=== PATIENT | female | born 1965 | race Caucasian/White ===

== ENCOUNTER → 2016-04-29 | Outpatient (REF) | payer BC ==
[~2016-04-29] MED LIST: CIPR500T89 PO; LISI10TA4 PO; OXYC1TAB23 PO
== END ==
LOC: M SFHCWAGY 14:06
PROVIDERS: ATTEND Nurse Practitioner Women's Health
DX: Z12.4 Encounter for screening for malignant neoplasm of cervix (principal)

== ENCOUNTER → 2016-04-29 | Outpatient (CLI) | payer BC ==
--- NOTE | 2016-04-29 14:52 | REPMRS ---
Patient History The patient states she had a clinical breast exam in 04/2016. No known family history of cancer. Taking hormonal contraceptives for 9 years. Digital Woman Screen Mammo: April 29, 2016 - Exam #: [id number] Bilateral CC and MLO view(s) were taken. Technologist: Melanie Ortiz, Technologist Prior study comparison: May 01, 2015, digital woman screen mammo performed at [facility]. April 29, 2014, digital woman screen mammo performed at [facility]. June 04, 2013, digital woman screen mammo performed at [facility]. FINDINGS: The breast tissue is heterogeneously dense. This may lower the sensitivity of mammography. There is a moderate amount of heterogeneously dense fibroglandular tissue which is fairly symmetric. There is no interval development of dominant mass, architectural distortion, or clustered microcalcification typical of malignancy. There has been no change in the appearance of the mammogram from the prior studies. ASSESSMENT: BI-RADS/ACR category 1 mammogram. Negative. Recommendation Routine screening mammogram of both breasts in 1 year (for women over age 40). This mammogram was interpreted with the aid of an FDA-approved computer-aided dectection system. Electronically Signed By: Spencer Neil MD 04/29/16 [id number]
== END ==
LOC: M WHC 13:56
PROVIDERS: ATTEND Nurse Practitioner Women's Health
DX: Z12.31 Encounter for screening mammogram for malignant neoplasm of breast (principal)

== ENCOUNTER → 2017-01-06 | Outpatient (REF) | payer BC ==
[~2017-01-06] MED LIST changes: +CIPR-249 PO; -CIPR500T89 PO
== END ==
LOC: M LAB REF 14:32
PROVIDERS: ATTEND Physician Assistant
DX: D22.62 Melanocytic nevi of left upper limb, including shoulder (principal)

== ENCOUNTER → 2017-06-09 | Outpatient (CLI) | payer BC | LOC: M WHC 08:18 | DX: Z12.31 Encounter for screening mammogram for malignant neoplasm of breast (principal) ==

== ENCOUNTER → 2017-06-09 | Outpatient (REF) | payer BC | LOC: M SFHCWAGY 08:20 | DX: Z12.4 Encounter for screening for malignant neoplasm of cervix (principal) | CPT/HCPCS: G0123 ==

== ENCOUNTER → 2018-08-03 | Outpatient (CLI) | payer BC ==
--- NOTE | 2018-08-03 17:11 | REPMRS ---
Patient History The patient states she had a clinical breast exam in 07/2018. Family history of breast cancer at age 50 or over in sister. Taking hormonal contraceptives for 11 years. Digital Woman Screen Mammo: August 03, 2018 - Exam #: [id number] Bilateral CC and MLO view(s) were taken. Technologist: Keily Fisher, Technologist Prior study comparison: June 09, 2017, digital woman screen mammo performed at [facility]. April 29, 2016, digital woman screen mammo performed at [facility]. May 01, 2015, digital woman screen mammo performed at [facility]. FINDINGS: The breast tissue is heterogeneously dense. This may lower the sensitivity of mammography. There is a moderate amount of heterogeneously dense fibroglandular tissue which is fairly symmetric. There is no interval development of dominant mass, architectural distortion, or clustered microcalcification typical of malignancy. There has been no change in the appearance of the mammogram from the prior studies. 3-D tomosynthesis shows no additional findings. Assessment: BI-RADS/ACR category 1 mammogram. Negative Mammogram. Recommendation Breast MRI of both breasts in 6 months. Routine screening mammogram of both breasts in 1 year (for women over age 40). This patient's Lifetime Breast Cancer RIsk is estimated at 20.9 %. Annual screening Breast MRI scanniing is recommended for patient's whose lifetime risk assessment is over 20%. This mammogram was interpreted with the aid of an FDA-approved computer-aided dectection system. Electronically Signed By: Spencer Neil MD 08/03/18 [id number]
== END ==
LOC: M WHC 14:29
PROVIDERS: ATTEND Nurse Practitioner Women's Health
DX: Z12.31 Encounter for screening mammogram for malignant neoplasm of breast (principal); Z80.3 Family history of malignant neoplasm of breast; Z92.0 Personal history of contraception

== ENCOUNTER → 2019-09-23 | Outpatient (CLI) | payer BC ==
--- NOTE | 2019-09-23 10:21 | REPMRS ---
Patient History The patient states she had a clinical breast exam in September 2019. Family history of breast cancer at age 50 or over in sister. Took hormonal contraceptives for 11 years. 3D TOMOSYNTHESIS WAS PERFORMED. AZUL Arguello Digital Woman Screen Mammo: September 23, 2019 - Exam #: [id number] Bilateral CC and MLO view(s) were taken. Technologist: Loreta Hines, Technologist Prior study comparison: August 03, 2018, bilateral digital woman screen mammo performed at [facility]. June 09, 2017, digital woman screen mammo performed at [facility]. FINDINGS: The breast tissue is heterogeneously dense. This may lower the sensitivity of mammography. There has been no change in the appearance of the mammogram from the prior studies. There is a moderate amount of residual fibroglandular tissue which is fairly symmetric. There is no interval development of dominant mass, areas of architectural distortion, or clustered microcalcification typical of malignancy. Assessment: BI-RADS/ACR category 1 mammogram. Negative Mammogram. Recommendation Routine screening mammogram in 1 year (for women over age 40). This mammogram was interpreted with the aid of an FDA-approved computer-aided dectection system. THE LIFETIME RISK OF BREAST CANCER IS 20.4%, THEREFORE SUPPLEMENTAL SCREENING MRI OF THE BREASTS IS RECOMMENDED IN 6 MONTHS. Electronically Signed By: Ryley Antony MD 09/23/19 0000
== END ==
LOC: M WHC 09:02
PROVIDERS: ATTEND Nurse Practitioner Women's Health
DX: Z12.31 Encounter for screening mammogram for malignant neoplasm of breast (principal)

== ENCOUNTER → 2019-09-23 | Outpatient (REF) | payer BC | LOC: M SFHCWAGY 11:40 | PROVIDERS: ATTEND Nurse Practitioner Women's Health | DX: Z12.4 Encounter for screening for malignant neoplasm of cervix (principal) ==

== ENCOUNTER → 2020-09-22 | Outpatient (CLI) | payer BC ==
[~2020-09-22] MED LIST changes: +LISI10TA22 PO; -LISI10TA4 PO
--- NOTE | 2020-09-22 12:29 | REP ---
INDICATION: STACEY SCR MAMMO. COMPARISON: Multiple TECHNIQUE: Digital screening mammography was carried out bilaterally in the CC and MLO projections and compared to the prior exams. Both 2D and 3D modalities were utilized. By history, the patient has no complaints of a palpable breast abnormality or other significant breast complaints.. FINDINGS: The breasts are unchanged in size and shape. Once again, scattered dense heterogenous fibroglandular elements are seen bilaterally. In the upper inner quadrant of the right breast there is a potential fay asymmetric density. No other suspicious features are seen in either breast. There is no skin thickening or nipple retraction. There are no suspicious calcifications. The Volpara volumetric breast density pattern is b. IMPRESSION: BIRADS/ACR category 0 mammogram. Suspected fay density right breast upper inner quadrant for which diagnostic digital magnified spot compression views recommended in the CC and MLO projections along with ultrasonography. This patient's Tyrer-Cuzick lifetime breast cancer risk assessment score is 19.9%. This mammogram was interpreted with the aid of an FDA-approved computer-aided detection system. The patient states she had a clinical breast exam in September 2020. The patient letter being requested is M0. RECOMMENDATION: As above <Electronically signed by Goyo Solis > 09/22/20 [id number]
== END ==
LOC: M WHC 10:52
PROVIDERS: ATTEND Nurse Practitioner Women's Health
DX: R92.2 Inconclusive mammogram (principal); N63.12 Unspecified lump in the right breast, upper inner quadrant

== ENCOUNTER → 2020-10-16 | Outpatient (CLI) | payer BC ==
--- NOTE | 2020-10-16 17:34 | REP ---
INDICATION: ADDITIONAL VIEWS RT BREAST; RIGHT BREAST ADD VIEWS; ADDITONAL VIEWS RT BREAST. COMPARISON: Comparison mammography September 22, 2020, September 23, 2019, August 03, 2018. TECHNIQUE: Magnified focal spot-compression CC and MLO views are obtained. A true mediolateral view is obtained with tomography. Targeted right breast sonography is carried out. This mammogram was interpreted with the aid of an FDA-approved computer-aided detection system. FINDINGS: Diagnostic mammography of the right breast confirms the presence of a spiculated mass in the right breast in the 12-1 o'clock position middle 3rd. This measuresr 2 cm in greatest diameter. Remaining breast parenchyma is unremarkable on the right. This is considered suspicious mammographically. The Volpara volumetric breast density pattern is b. Targeted ultrasound: Targeted right breast sonography is performed. At 12 o'clock in the right breast, a 1.5 x 1.5 x 1.4 cm irregular hypoechoic mass is seen corresponding the mammographic findings. This has a relatively high K PA number, 65.0, on shear wave elastography. It is considered suspicious sonographically. IMPRESSION: BIRADS/ACR category 5 highly suspicious right breast mammographic and sonographic findings. 2 cm mass at 12 o'clock. This patient's Tyrer-Cuzick lifetime breast cancer risk assessment score is 19.9%. RECOMMENDATION: Ultrasound-guided needle biopsy of the right breast mass with marker clip placement and post clip placement mammography.. The patient letter being requested is M4. <Electronically signed by Spencer Neil > 10/16/20 [id number]
== END ==
LOC: M WHC 09:12
PROVIDERS: ATTEND Nurse Practitioner Women's Health
DX: R92.2 Inconclusive mammogram (principal); N63.11 Unspecified lump in the right breast, upper outer quadrant; Z97.8 Presence of other specified devices
CPT/HCPCS: 76642; 77065; G0279

== ENCOUNTER → 2020-10-16 | Outpatient (CLI) | payer BC ==
[~2020-10-16] MED LIST changes: +ACET650T61 PO; +ATOR1TAB21 PO; +FISH1000 PO; +FURO20TA2 PO; +HYDR12.55 PO; +LIDO1CRE42 TOP; +LISI5TAB11 PO; +MAGICMW SSP; +METO1TAB32 PO; +NEUR300C PO; +ONDA-84 PO; +PERC5TAB12 PO; +PROC10TA5 PO; +ULTR50TA8 PO
[2020-10-16 13:16] LABS: BASO # 0.1 10^3/uL (0.0-0.2); BASO % 0.6 % (0.0-1.0); EOS # 0.3 10^3/uL (0.0-0.5); EOS % 3.2 % (0.0-3.0); HEMATOCRIT 42.9 % (36.0-47.0); HEMOGLOBIN 14.2 g/dl (12.0-15.5); LYMPH # 2.2 10^3/uL (1.5-5.0); LYMPH % 27.1 % (24.0-44.0); MEAN CORPUSCULAR HEMOGLOBIN 30.7 pg (27.0-33.0); MEAN CORPUSCULAR HGB CONC 33.1 g/dl (32.0-36.5); MEAN CORPUSCULAR VOLUME 92.7 fl (80.0-96.0); MONO # 0.8 10^3/uL (0.0-0.8); MONO % 9.1 % (2.0-8.0); NEUTROPHILS # 4.9 10^3/uL (1.5-8.5); NEUTROPHILS % 59.8 % (36.0-66.0); PLATELET COUNT, AUTOMATED 299 10^3/uL (150-450); RED BLOOD COUNT 4.63 10^6/uL (4.00-5.40); WHITE BLOOD COUNT 8.2 10^3/uL (4.0-10.0)
[2020-10-16 13:47] LABS: ALBUMIN 4.4 GM/DL (3.2-5.2); ALT/SGPT 49 U/L (12-78); BILIRUBIN,TOTAL 0.7 MG/DL (0.2-1.0); BLOOD UREA NITROGEN 15 MG/DL (7-18); CALCIUM LEVEL 10.8 MG/DL (8.5-10.1); CARBON DIOXIDE LEVEL 29 MEQ/L (21-32); CHLORIDE LEVEL 111 MEQ/L (98-107); CHOLESTEROL LEVEL 149 MG/DL (<200); CHOLESTEROL RISK RATIO 2.811 (<5); CREATININE FOR GFR 0.58 MG/DL (0.55-1.30); FREE T4 0.87 NG/DL (0.76-1.46); GLOMERULAR FILTRATION RATE > 60.0 (>51); GLUCOSE, FASTING 90 MG/DL (70-100); HDL CHOLESTEROL 53 MG/DL (>40); LDL CHOLESTEROL 76 MG/DL (<100); NON-HDL-C 96 MG/DL; POTASSIUM SERUM 3.9 MEQ/L (3.5-5.1); SODIUM LEVEL 144 MEQ/L (136-145); THYROID STIMULATING HORMONE 0.807 uIU/ML (0.358-3.740); TOTAL PROTEIN 6.9 GM/DL (6.4-8.2); TRIGLYCERIDES LEVEL 100 MG/DL (<150)
[2020-10-19 10:52] LABS: PTH INTACT 71.7 PG/ML (18.5-88.0)
[2020-10-19 13:00] LABS: LABILE ALKPHOS 76 U/L; STABLE ALKPHOS 69 U/L
[2020-10-19 13:01] LABS: % LABILE ALKALINE PHOSPHATASE 52.4 %
== END ==
LOC: M PLALAB 10:53
PROVIDERS: ATTEND Family Medicine
DX: Z13.29 Encounter for screening for other suspected endocrine disorder (principal); Z13.0 Encounter for screening for diseases of the blood and blood-forming organs and certain disorders involving the immune mechanism; E78.2 Mixed hyperlipidemia; E83.52 Hypercalcemia

== ENCOUNTER → 2020-10-21 | Outpatient (CLI) | payer BC ==
[2020-10-21 16:11] VITALS: BP 158/94
== END ==
LOC: M WHCPRO 15:22
PROVIDERS: ATTEND Surgery
DX: C50.211 Malignant neoplasm of upper-inner quadrant of right female breast (principal)

== ENCOUNTER → 2020-10-28 | Outpatient (CLI) | payer BC ==
[~2020-10-28] MED LIST changes: -ACET650T61 PO; -FURO20TA2 PO; -LIDO1CRE42 TOP; -LISI5TAB11 PO; -MAGICMW SSP; -NEUR300C PO; -ONDA-84 PO; -PERC5TAB12 PO; -PROC10TA5 PO; -ULTR50TA8 PO
[2020-10-28 14:50] VITALS: BP 122/78
--- NOTE | 2020-10-28 22:51 | ROOPDOC ---
[facility] Report Of Operation Report of Operation DATE OF PROCEDURE: 10/28/20 DIAGNOSIS: Right abnormal axillary lymph node PROCEDURE: Ultrasound guided right abnormal axillary lymph node biopsy with clip placement SURGEON: Anish Agarwal BLOOD LOSS: minimal COMPLICATIONS: none Lidocaine 1% LOT [id number] Expiration 04/2024 Sodium Bicarbonate 8.4% LOT [id number] Expiration 04/2021 Hydromark clip LOT [id number] Expiration 06/2023 SHAPE 3 Bx device: TEMNO 18G x 20 cm LOT [id number] Expiration 04/2023 Informed consent was obtained. The most common risk and possible complications including bleeding, hematoma, bruising, infection, injury to surrounding structures were explained to the patient and the patient expressed un derstanding. Patient was placed on the bed in the supine position. Appropriate time out was done stating patients name, date of , and the procedure to be performed. The right axilla was prepped and draped in the usual fashion. The ultrasound was used to confirm the location of enlarged lymph node with cortex measuring 8 mm. Plain Lidocaine 1% and 8.4% sodium bicarbonate 10:1 mix was used to anesthetize the skin, the biopsy site and tissues along the anticipated biopsy tract. Small skin incision was made with blade number 11. Temno 18G cannula with introducer was inserted through the incision and advanced under the ultrasound guidance to position immediately adjacent to the enlarged lymph node with 8 mm cortex. Next, the introducer was removed and Temno 18G biopsy device was places in the cannula. Pre-biopsy imaging, and post-biopsy imaging were captured. Five good core biopsies were taken at various levels of the lesion. Specimen was placed in formaldehyde, labeled with appropriate biopsy site and patients name, and sent to pathology for evaluation. Next, the biopsy device and cannula were withdrawn and a clip introducer was inserted into the position immediately adjacent to the biopsied lymph node. The SHAPE 3 Hydromark clip was deployed under sonographic guidance. Post-clip placement image was captured. Manual pressure over the biopsy cavity and tract was held after the clip introducer was withdrawn. No bleeding was noted upon removal of the pressure. No postbiopsy right breast mammogram was done because the probability of seeing axillary lymph node was very low. Of note, patient had right breast mammogram last week. Postprocedural dressing was placed. Patient tolerated procedure well. Discharge instructions were discussed with the patient and the patient expressed understanding. ANISH AGARWAL DO Oct 28, 2020 22:51
== END ==
LOC: M WHCPRO 09:22
PROVIDERS: ATTEND Surgery
DX: C77.3 Secondary and unspecified malignant neoplasm of axilla and upper limb lymph nodes (principal); C50.911 Malignant neoplasm of unspecified site of right female breast

== ENCOUNTER → 2020-11-05 | Outpatient (CLI) | payer BC ==
[~2020-11-05] MED LIST changes: +PROHANCE 279.3MG/ML 15ML VIAL As Ordered ONE; +PROHANCE 279.3MG/ML 5ML VIAL As Ordered ONE
--- NOTE | 2020-11-05 16:32 | REP ---
INDICATION: INVASIVE DUCTAL CA RT BREAST. COMPARISON: Mammograms 09/22/2020, 10/16/2020. TECHNIQUE: Three [place] MRI imaging was performed with a dedicated breast coil. Axial, coronal, and sagittal T1 and T2 weighted scans were obtained with and without fat saturation in the usual fashion. The study includes dynamically acquired post gadolinium-enhanced imaging with image subtraction. Maximum intensity projection and multi planar reformation imaging is included as well. This study is interpreted with the aid of WiramaD, an FDA approved computer aided detection (CAD) software program, on a dedicated breast MRI workstation. The gadolinium enhancement dose is 16 mL of intravenous ProHance. FINDINGS: There is moderate fibroglandular tissue present bilaterally. An enlarged right axillary lymph node measures approximately 2.3 x 1.7 cm. No dominant cyst is seen in either breast. There is moderate background parenchymal enhancement diffusely bilaterally. The known right breast cancer is visualized in the upper right breast in the form of a suspicious enhancing mass with irregular margins. There is a biopsy clip in the medial margin of the mass. It measures approximately 2 cm in diameter. There is no other suspicious enhancing mass or morphologic abnormality. IMPRESSION: BI-RADS category 6, known right breast cancer. In the upper right breast slightly medially a suspicious enhancing mass with irregular margins has a maximum diameter of approximately 2 cm. There is a biopsy clip in the medial margin of the mass. This is consistent with invasive ductal carcinoma. An enlarged right axillary lymph node is present. I see no other evidence of suspicious enhancing mass or morphologic abnormality. <Electronically signed by Ryley Antony > 11/05/20 [id number]
== END ==
LOC: M RAD 09:34
PROVIDERS: ATTEND Surgery
DX: C50.911 Malignant neoplasm of unspecified site of right female breast (principal)
CPT/HCPCS: A9576; C8908

== ENCOUNTER → 2020-11-18 | Outpatient (CLI) | payer BC ==
[~2020-11-18] MED LIST changes: +LISI-898 PO; -PROHANCE 279.3MG/ML 15ML VIAL As Ordered ONE; -PROHANCE 279.3MG/ML 5ML VIAL As Ordered ONE
--- NOTE | 2020-11-18 09:52 | REP ---
INDICATION: RT ARM PAIN SWELLING ? DVT COMPARISON: None. TECHNIQUE: Real time compression and duplex Doppler evaluation of the Right upper extremity deep venous system is performed. FINDINGS: The Right subclavian, jugular, axillary, brachial, basilic and cephalic veins are fully compressible where accessible with transducer pressure, and demonstrate no intraluminal thrombus and normal venous waveforms. There is no evidence of deep venous thrombosis. IMPRESSION: No evidence of deep venous thrombosis of the Right upper extremity deep vein system. <Electronically signed by Ryley Antony > 11/18/20 0949
== END ==
LOC: M RAD 09:01
PROVIDERS: ATTEND Surgery
DX: M79.601 Pain in right arm (principal)

== ENCOUNTER → 2020-11-30 | Outpatient (CLI) | payer BC ==
[~2020-11-30] MED LIST changes: +ONDA8TAB10 PO; +PROC10TA4 PO
== END ==
LOC: M CARPUL 11:06
PROVIDERS: ATTEND Internal Medicine Medical Oncology
DX: C50.911 Malignant neoplasm of unspecified site of right female breast (principal); Z79.899 Other long term (current) drug therapy

== ENCOUNTER → 2020-12-04 | Outpatient (CLI) | payer BC ==
[~2020-12-04] MED LIST changes: +ACETAMINOPHEN 325 MG TAB As Ordered ONE; +LIDO1CRE42 TOP; +LIDOCAINE 1% MDV 20ML VIAL As Ordered ONE; +MIDAZOLAM INJ 2MG/2ML VIAL (J2250 PER 1MG) As Ordered ONE; +NS 1,000 ML IV SCH; +ceFAZolin 1GM VIAL (J0690 PER 500MG) As Ordered ONE; +ceFAZolin SOD 1 GM in D5W MINI-BAG PLUS 50 ML IV SCH; +ceFAZolin SOD 2 GM in IV 1 EA IV ONE; +diphenhydrAMINE 50MG/ML VIAL (J1200) As Ordered ONE; +fentaNYL 100 MCG/2 ML INJECTION (J3010) As Ordered ONE
--- NOTE | 2020-12-04 11:14 | IRHP ---
[facility] IR Pre-Procedure H & P General Date of Service: Dec 04, 2020 Procedure: Same Day Surgery Interval History and Physical I have seen the patient and reviewed last H & P performed within 30 days. There is no significant interval change. History of Present Illness Chief Complaint The patient is a 55-year-old female admitted with a reason for visit of Rt Sided Breast Ca. PRE-PROCEDURE DIAGNOSIS: Breast cancer HEART: Normal rate. LUNGS: Normal breathing at rest. ASA Classification ASA Classification: II-Mild systemic disease, III-Severe systemic dis. Mallampati Score: II NPO: Yes Problems with prior sedation: No Obstructive Sleep Apnea: No Plan moderate sedation Allergies Coded Allergies: MS - No Known Drug Allergy (Unverified Allergy, Unknown, 06/19/12) Home Medications Scheduled Atorvastatin Calcium (Atorvastatin Calcium), 1 TAB PO DAILY, (Reported) Hydrochlorothiazide (Hydrochlorothiazide), 1 TAB PO DAILY, (Reported) Lisinopril (Lisinopril), 1 TAB PO DAILY, (Reported) Metoprolol Succinate (Metoprolol Succinate), 1 TAB PO DAILY, (Reported) [place]-3 Fatty Acids/Fish Oil (Fish Oil 1,000 mg Capsule), 1 CAP PO DAILY, (Reported) Scheduled PRN Ondansetron HCl (Ondansetron HCl), 8 MG PO Q12H PRN for NAUSEA OR VOMITING Prochlorperazine Maleate (Prochlorperazine Maleate), 10 MG PO Q6H PRN for NAUSEA OR VOMITING LISBET ABDUL MD Dec 04, 2020 11:14
--- NOTE | 2020-12-07 08:38 | IRPON ---
IR Postoperative Note Date Of Procedure: Dec 04, 2020 Time Of Procedure: 16:00 IR Postoperative Note IR Ultrasound and fluoroscopy guided port placement IR Ultrasound of the neck. IR Moderate sedation. Clinical indication: Right-sided breast cancer. Physician: Dr. Rousseau. Procedure: The patient was advised of the benefits, risks, and alternatives of the procedure and informed consent was obtained. A time-out was performed with verification of the patient's name, MRN, site of procedure and type of procedure to be performed. The patient was positioned in the supine position on the angiographic table. The site was prepped and draped in the usual sterile fashion. Moderate sedation was performed by the physician including the presence of an independent trained RN who assisted and monitored the patient's level of consciousness and physiologic status. Following the administration of fentanyl and Versed , the physician spent 45 minutes of continuous face to face time with the patient. Ultrasound of the neck reveals a patent and compressible left internal jugular vein. A supervisor cold rolling radiograph reveals no gross abnormality. The neck and anterior chest wall were anesthetized with lidocaine. The left internal jugular vein was accessed using a microintroducer needle under ultrasound guidance, via a lateral approach. An 018 wire was advanced into the superior vena cava, the needle was removed and a microsheath was placed. An Amplatz wire was then passed into the inferior vena cava. An incision at the internal jugular vein access site and anterior chest wall were made using a scalpel. An incision was made at the anterior chest wall. A small pocket was created using a combination of blunt and sharp dissection. A tunneling device was then used to pass the catheter from the pocket to the neck puncture site. An 8- [employer] Smart power port was then positioned in the pocket. The catheter was then measured and cut. The introducer sheath was exchanged for a peel-away sheath. The catheter was passed through the peel-away sheath into the internal jugular vein and the peel-away sheath was removed. The port tip was positioned at the cavoatrial junction. The port was then accessed with a Lopez needle. The port flushes and aspirates well. The puncture site in the neck was closed. The chest wall incision was then closed with 2-0 Vicryl and 4-0 Monocryl. Glue and Steri- Strips were applied. A sterile dressing was then applied. The patient tolerated the procedure well and was returned to the PRU in stable condition. Estimated blood loss: <5 ml. Complications: None. Conclusion: 1. Successful placement of an 8-[place] [employer] Smart power port via the Left internal jugular vein. The port is ready for immediate use. 2. Patient to follow up in IR clinic in 2 weeks. Thank you for this referral. LISBET ROUSSEAU MD Dec 07, 2020 08:37
== END ==
LOC: M IRPRO 10:51
PROVIDERS: ATTEND Internal Medicine Medical Oncology
DX: C50.911 Malignant neoplasm of unspecified site of right female breast (principal); Z79.899 Other long term (current) drug therapy
CPT/HCPCS: 36561; 99152; 99153; C1769; C1788; C1894; J0690; J1200; J1642; J1644; J2250; J3010

== ENCOUNTER → 2020-12-22 | Outpatient (POV) | payer BC ==
[~2020-12-22] VITALS: Ht 160 cm; Wt 81.8 kg
[~2020-12-22] MED LIST changes: -ACETAMINOPHEN 325 MG TAB As Ordered ONE; -LIDOCAINE 1% MDV 20ML VIAL As Ordered ONE; -MIDAZOLAM INJ 2MG/2ML VIAL (J2250 PER 1MG) As Ordered ONE; -NS 1,000 ML IV SCH; -ceFAZolin 1GM VIAL (J0690 PER 500MG) As Ordered ONE; -ceFAZolin SOD 1 GM in D5W MINI-BAG PLUS 50 ML IV SCH; -ceFAZolin SOD 2 GM in IV 1 EA IV ONE; -diphenhydrAMINE 50MG/ML VIAL (J1200) As Ordered ONE; -fentaNYL 100 MCG/2 ML INJECTION (J3010) As Ordered ONE
[2020-12-22 08:45] VITALS: BP 133/87
--- NOTE | 2020-12-24 13:52 | IRPN ---
[facility] IR Progress Note IR Progress Note DATE: Dec 22, 2020 FOLLOW-UP: Patient is status post port placement. Patient states doing well, no fevers or chills or pain at site. ON EXAMINATION: Port site appears to be healing well. Glue and Steri-Strips are still on. No redness, discharge or fluctuance. IMPRESSION: Doing well status post port placement. No further follow-up scheduled unless initiated by patient and/or referring provider. Thank you for this referral Allergies Coded Allergies: No Known Allergies (Verified Allergy, Unknown, 12/07/20) VS,Fishbone, I+O VS, Fishbone, I+O Vital Signs Date Time Temp Pulse Resp B/P (MAP) Pulse Ox O2 Delivery O2 Flow Rate FiO2 12/22/20 08:45 97.8 74 20 133/87 (102) 98 Room Air LISBET ABDUL MD Dec 24, 2020 13:52
== END ==
LOC: M IRPOV 08:32
PROVIDERS: ATTEND Radiology Diagnostic Radiology
DX: Z45.2 Encounter for adjustment and management of vascular access device (principal)

== ENCOUNTER → 2021-01-11 | Outpatient (CLI) | payer BC ==
[2021-01-11 15:32] LABS: CALCIUM LEVEL 10.4 MG/DL (8.5-10.1); PHOSPHORUS LEVEL 3.1 MG/DL (2.5-4.9)
[2021-01-11 15:42] LABS: TOTAL 25(OH) VITAMIN D 34.2 NG/ML (30.0-100.0)
== END ==
LOC: M PLALAB 11:01
PROVIDERS: ATTEND Internal Medicine Endocrinology, Diabetes & Metabolism
DX: E83.52 Hypercalcemia (principal)

== ENCOUNTER → 2021-01-15 | Outpatient (REF) | payer BC | LOC: M LAB REF 10:10 | PROVIDERS: ATTEND Internal Medicine Endocrinology, Diabetes & Metabolism | DX: E83.52 Hypercalcemia (principal) ==

== ENCOUNTER → 2021-01-25 | Outpatient (REF) | payer BC ==
[2021-01-25 13:52] LABS: CALCIUM, 24 HOUR URINE 58.5 MG/24HR (42-353); CALCIUM, URINE 11.7 MG/DL
== END ==
LOC: M LAB REF 10:08
PROVIDERS: ATTEND Internal Medicine Endocrinology, Diabetes & Metabolism
DX: E83.52 Hypercalcemia (principal)

== ENCOUNTER → 2021-01-26 | Outpatient (CLI) | payer BC ==
--- NOTE | 2021-01-26 13:57 | REP ---
INDICATION: RT BREAST CA. COMPARISON: Ultrasound 10/16/2020. TECHNIQUE: Real-time sonographic evaluation of right breast performed. FINDINGS: The previously identified hypoechoic irregular mass at 12 o'clock is again visualized. It measures 11.5 x 9.8 x 8.8 mm, previously 15.2 x 15.1 x 13.5 mm. Current volume 0.519 cc, prior volume 1.62 cc. This is a 68% decrease. HydroMARK clip is noted at the medial margin of the mass. IMPRESSION: BIRADS/ACR category 6, known right breast cancer. The mass at 12 o'clock has decreased in size as discussed in detail above. RECOMMENDATION: None. <Electronically signed by Ryley Antony > 01/26/21 [id number]
== END ==
LOC: M RAD 13:04
PROVIDERS: ATTEND Internal Medicine Medical Oncology
DX: C50.911 Malignant neoplasm of unspecified site of right female breast (principal)

== ENCOUNTER → 2021-03-22 | Outpatient (CLI) | payer BC ==
[~2021-03-22] MED LIST changes: +MAGICMW SSP; +PERC5TAB12 PO
[2021-03-22 15:55] LABS: BLOOD UREA NITROGEN 9 MG/DL (7-18); CALCIUM LEVEL 10.5 MG/DL (8.5-10.1); CARBON DIOXIDE LEVEL 31 MEQ/L (21-32); CHLORIDE LEVEL 102 MEQ/L (98-107); CREATININE FOR GFR 0.52 MG/DL (0.55-1.30); GLOMERULAR FILTRATION RATE > 60.0 (>51); GLUCOSE, FASTING 95 MG/DL (70-100); POTASSIUM SERUM 3.5 MEQ/L (3.5-5.1); SODIUM LEVEL 137 MEQ/L (136-145)
== END ==
LOC: M PLALAB 12:46
PROVIDERS: ATTEND Surgery
DX: C50.911 Malignant neoplasm of unspecified site of right female breast (principal)

== ENCOUNTER → 2021-03-31 | Outpatient (CLI) | payer BC ==
[~2021-03-31] MED LIST changes: -LISI-898 PO; +LISI5TAB11 PO; +NEUR300C PO; +ONDA-84 PO; -ONDA8TAB10 PO; -PROC10TA4 PO; +PROC10TA5 PO
== END ==
LOC: M RAD 11:33
PROVIDERS: ATTEND Internal Medicine Medical Oncology
DX: R22.31 Localized swelling, mass and lump, right upper limb (principal)

== ENCOUNTER → 2021-04-02 | Outpatient (CLI) | payer BC | LOC: M ONCR 15:40 | PROVIDERS: ATTEND General Practice | DX: C50.311 Malignant neoplasm of lower-inner quadrant of right female breast (principal); Z92.21 Personal history of antineoplastic chemotherapy; Z79.891 Long term (current) use of opiate analgesic; Z79.899 Other long term (current) drug therapy ==

== ENCOUNTER → 2021-04-07 | Outpatient (CLI) | payer BC | LOC: M RAD 10:30 | PROVIDERS: ATTEND Surgery | DX: C50.311 Malignant neoplasm of lower-inner quadrant of right female breast (principal) ==

== ENCOUNTER → 2021-04-14 | Outpatient (CLI) | payer BC ==
[~2021-04-14] MED LIST changes: +FURO20TA2 PO
[2021-04-14 12:15] VITALS: BP 143/68
== END ==
LOC: M IRPRO 08:55
PROVIDERS: ATTEND Surgery
DX: R92.8 Other abnormal and inconclusive findings on diagnostic imaging of breast (principal)
CPT/HCPCS: 19085; 77065; 88305; 88342; A9576; G0279

== ENCOUNTER → 2021-04-23 | Outpatient (CLI) | payer BC ==
[2021-04-23 15:14] LABS: BASO # 0.1 10^3/uL (0.0-0.2); BASO % 1.4 % (0.0-1.0); EOS # 0.4 10^3/uL (0.0-0.5); EOS % 5.6 % (0.0-3.0); HEMATOCRIT 40.4 % (36.0-47.0); HEMOGLOBIN 12.9 g/dl (12.0-15.5); LYMPH # 2.4 10^3/uL (1.5-5.0); LYMPH % 29.9 % (24.0-44.0); MEAN CORPUSCULAR HEMOGLOBIN 30.9 pg (27.0-33.0); MEAN CORPUSCULAR HGB CONC 31.9 g/dl (32.0-36.5); MEAN CORPUSCULAR VOLUME 96.7 fl (80.0-96.0); MONO # 0.7 10^3/uL (0.0-0.8); MONO % 9.1 % (2.0-8.0); NEUTROPHILS # 4.2 10^3/uL (1.5-8.5); NEUTROPHILS % 53.7 % (36.0-66.0); PLATELET COUNT, AUTOMATED 277 10^3/uL (150-450); RED BLOOD COUNT 4.18 10^6/uL (4.00-5.40); WHITE BLOOD COUNT 7.9 10^3/uL (4.0-10.0)
[2021-04-23 15:43] LABS: ALBUMIN 4.1 GM/DL (3.2-5.2); ALT/SGPT 51 U/L (12-78); BILIRUBIN,TOTAL 0.2 MG/DL (0.2-1.0); BLOOD UREA NITROGEN 13 MG/DL (7-18); CALCIUM LEVEL 10.8 MG/DL (8.5-10.1); CARBON DIOXIDE LEVEL 33 MEQ/L (21-32); CHLORIDE LEVEL 106 MEQ/L (98-107); CREATININE FOR GFR 0.65 MG/DL (0.55-1.30); GLOMERULAR FILTRATION RATE > 60.0 (>51); GLUCOSE, FASTING 97 MG/DL (70-100); SODIUM LEVEL 143 MEQ/L (136-145); TOTAL PROTEIN 6.8 GM/DL (6.4-8.2)
== END ==
LOC: M PLALAB 14:10
PROVIDERS: ATTEND Nurse Practitioner Adult Health
DX: Z01.818 Encounter for other preprocedural examination (principal)

== ENCOUNTER → 2021-05-01 | Outpatient (CLI) | payer BC | LOC: M LABSMTC 09:32 | PROVIDERS: ATTEND Surgery | DX: Z01.812 Encounter for preprocedural laboratory examination (principal); Z20.822 Contact with and (suspected) exposure to COVID-19 ==

== ENCOUNTER 2021-05-06 06:17 | Observation (INO) | payer BC ==
[~2021-05-06] VITALS: Ht 160 cm; Wt 74.8 kg
[~2021-05-06 06:17] MED LIST changes: +LR 1,000 ML IV ONE; +ceFAZolin SOD 2 GM in IV 1 EA IV ONE
[2021-05-06] MEDS ORDERED: HEPARIN SOD (PORCINE) 5000UNITS/ML 1ML VIAL/SYRINGE SQ ONE (07:15)
[2021-05-06] MEDS ORDERED: ISOSULFAN BLUE(LYMPHAZURIN) 1% 50MG/5ML VIAL As Ordered ONE (10:34)
[2021-05-06] MEDS ORDERED: propofoL 200 MG/20 ML VIAL As Ordered ONE ×3 (11:27→15:56)
[2021-05-06] MEDS ORDERED: LIDOCAINE 2% 100MG/5ML SDV (FOR ANES.) As Ordered ONE (11:27)
[2021-05-06] MEDS ORDERED: GENTAMICIN SULF 80MG/2ML VIAL As Ordered ONE (11:28)
[2021-05-06] MEDS ORDERED: dexameTHASONE 4 MG/ML 1ML VIAL (J1100 PER 1MG) As Ordered ONE (11:28)
[2021-05-06] MEDS ORDERED: BUPIVACAINE LIPOSOME/PF 1.3% 20ML VIAL (13.3MG/ML)(EXPAREL) As Ordered ONE (11:28)
[2021-05-06] MEDS ORDERED: SUCCINYLCHOLINE 100 MG/5 ML SYRINGE (J0330) As Ordered ONE (11:29)
[2021-05-06] MEDS ORDERED: ACETAMINOPHEN TAB 650MG DOSE (2X325MG) PO PRN (11:35)
[2021-05-06] MEDS ORDERED: ONDANSETRON 4MG/2ML VIAL IV PRN ×2 (11:35→17:45)
[2021-05-06] MEDS ORDERED: MORPHINE 2 MG/ML 1ML VIAL IV PRN (11:35)
[2021-05-06] MEDS: LR 1,000 ML IV SCH ×2 (11:35→22:05)
[2021-05-06] MEDS ORDERED: ACETAMINOPHEN 1000MG 100ML IV BTL (OFIRMEV) (J0131 PER 10MG) As Ordered ONE (11:42)
[2021-05-06] MEDS ORDERED: MIDAZOLAM INJ 2MG/2ML VIAL (J2250 PER 1MG) As Ordered ONE (11:43)
[2021-05-06] MEDS ORDERED: fentaNYL 250 MCG/5 ML INJECTION As Ordered ONE (11:43)
[2021-05-06] MEDS ORDERED: fentaNYL 100 MCG/2 ML INJECTION As Ordered ONE ×2 (13:32→17:41)
[2021-05-06] MEDS ORDERED: METOCLOPRAMIDE INJ 10MG/2ML VIAL (J2765 PER 1) As Ordered ONE (14:28)
[2021-05-06] MEDS ORDERED: HYDROmorphone HCL 2MG/ML 1ML VIAL As Ordered ONE (15:55)
[2021-05-06] MEDS ORDERED: ceFAZolin 2 GM/D5W 50 ML IV BAG (J0690 PER 500MG) As Ordered ONE (16:02)
[2021-05-06] MEDS ORDERED: LR 1,000 ML IV SCH (17:45)
[2021-05-06] MEDS: fentaNYL 100 MCG/2 ML INJECTION IV PRN ×4 (17:47→18:05)
[2021-05-06] MEDS: oxyCODONE 5MG TAB PO PRN ×2 (17:56→18:27)
[2021-05-06] MEDS: HYDROMORPHONE HCL 0.5 MG/ 0.5 ML SYRINGE (J1170 PER 1) IV PRN ×4 (18:10→18:25)
[2021-05-06 19:00] VITALS: BP 135/83
[2021-05-06 19:50] VITALS: BP 134/84
[2021-05-06] MEDS: GABAPENTIN 300 MG CAP PO SCH (20:32)
[2021-05-06] MEDS: ceFAZolin SOD 2 GM in IV 1 EA IV SCH (20:32)
[2021-05-06] MEDS: HEPARIN SOD (PORCINE) 5000UNITS/ML 1ML VIAL/SYRINGE SQ SCH (20:33)
[2021-05-06] MEDS: traMADol 50 MG TAB PO PRN (20:43)
[2021-05-06 21:19] VITALS: BP 136/84
[2021-05-06 22:42] VITALS: BP 135/88
[2021-05-07] MEDS: ceFAZolin SOD 2 GM in IV 1 EA IV SCH (05:18)
[2021-05-07] MEDS: HEPARIN SOD (PORCINE) 5000UNITS/ML 1ML VIAL/SYRINGE SQ SCH (05:19)
[2021-05-07] MEDS: traMADol 50 MG TAB PO PRN ×2 (05:28→12:52)
[2021-05-07 06:08] LABS: BASO % 0.3 % (0.0-1.0); EOS % 0.2 % (0.0-3.0); HEMATOCRIT 35.6 % (36.0-47.0); HEMOGLOBIN 11.1 g/dl (12.0-15.5); LYMPH # 1.9 10^3/uL (1.5-5.0); LYMPH % 16.9 % (24.0-44.0); MEAN CORPUSCULAR HEMOGLOBIN 29.4 pg (27.0-33.0); MEAN CORPUSCULAR HGB CONC 31.2 g/dl (32.0-36.5); MEAN CORPUSCULAR VOLUME 94.4 fl (80.0-96.0); MONO # 0.9 10^3/uL (0.0-0.8); MONO % 7.9 % (2.0-8.0); NEUTROPHILS # 8.2 10^3/uL (1.5-8.5); NEUTROPHILS % 74.4 % (36.0-66.0); PLATELET COUNT, AUTOMATED 213 10^3/uL (150-450); RED BLOOD COUNT 3.77 10^6/uL (4.00-5.40)
[2021-05-07 06:26] LABS: ALBUMIN 3.2 GM/DL (3.2-5.2); ALT/SGPT 34 U/L (12-78); BILIRUBIN,TOTAL 0.3 MG/DL (0.2-1.0); BLOOD UREA NITROGEN 12 MG/DL (7-18); CALCIUM LEVEL 10.2 MG/DL (8.5-10.1); CARBON DIOXIDE LEVEL 25 MEQ/L (21-32); CHLORIDE LEVEL 110 MEQ/L (98-107); CREATININE FOR GFR 0.58 MG/DL (0.55-1.30); GLOMERULAR FILTRATION RATE > 60.0 (>51); GLUCOSE, FASTING 98 MG/DL (70-100); MAGNESIUM LEVEL 1.9 MG/DL (1.8-2.4); POTASSIUM SERUM 3.6 MEQ/L (3.5-5.1); SODIUM LEVEL 144 MEQ/L (136-145); TOTAL PROTEIN 5.8 GM/DL (6.4-8.2)
[2021-05-07 06:47] VITALS: BP 129/62
[2021-05-07 08:51] VITALS: BP 129/62
[2021-05-07] MEDS: GABAPENTIN 300 MG CAP PO SCH (08:51)
[2021-05-07] MEDS ORDERED: ATORVASTATIN 20 MG TAB PO SCH (09:00)
[2021-05-07] MEDS ORDERED: METOPROLOL SUCC *XL* 25MG TAB (TopROL *XL*) PO SCH (09:00)
[2021-05-07] MEDS ORDERED: FUROSEMIDE 20 MG TAB PO SCH (09:00)
[2021-05-07] MEDS ORDERED: ULTR50TA8 PO (11:34)
[2021-05-07] MEDS ORDERED: ACET650T61 PO (11:34)
[2021-05-07 12:56] LABS: TOTAL 25(OH) VITAMIN D 39.5 NG/ML (30.0-100.0)
[2021-05-13] MEDS ORDERED: FURO20TA2 PO (13:36)
== END 2021-05-07 13:05 | disposition home or self-care (01) ==
LOC: M SDC 06:17 → M MS5PR 06:18 → UNDOADMOB 05-07 06:18 → UNDODISOB 05-07 13:05 → M MS5PR 05-07 13:14
PROVIDERS: ADMIT Surgery; ATTEND Surgery
DX: C50.911 Malignant neoplasm of unspecified site of right female breast (principal); C77.3 Secondary and unspecified malignant neoplasm of axilla and upper limb lymph nodes; I10 Essential (primary) hypertension; Z87.891 Personal history of nicotine dependence; M79.601 Pain in right arm; Z92.21 Personal history of antineoplastic chemotherapy; Z80.9 Family history of malignant neoplasm, unspecified; E78.5 Hyperlipidemia, unspecified; Z79.899 Other long term (current) drug therapy
CPT/HCPCS: 19125; 19126; 19316; 36415; 38740; 76942; 78195; 80053; 81025; 82306; 83735; 85025; 86850; 86900; 86901; 88302; 88307; 88331; 88342; 96365; 96366; 96372; 96375; C9290; G0378; J0131; J0330; J0690; J1100; J1170; J1580; J1644; J2250; J2270; J2405; J2765; J3010; Q9968

== ENCOUNTER 2021-05-20 10:10 | Outpatient (RCR) | payer BC ==
[~2021-05-20 10:10] MED LIST changes: +ACET650T61 PO; -LR 1,000 ML IV ONE; +ULTR50TA8 PO; -ceFAZolin SOD 2 GM in IV 1 EA IV ONE
[2021-05-28] MEDS ORDERED: LETR2.5T2 PO (08:21)
[2021-05-28] MEDS ORDERED: FURO20TA2 PO (08:24)
== END 2021-06-17 ==
LOC: M PT 10:10
PROVIDERS: ATTEND Surgery
DX: I89.0 Lymphedema, not elsewhere classified (principal); C50.911 Malignant neoplasm of unspecified site of right female breast

== ENCOUNTER → 2021-05-28 | Outpatient (CLI) | payer BC ==
[~2021-05-28] MED LIST changes: +LETR2.5T2 PO; +LIDO2SOL9 PO
== END ==
LOC: M ONCR 09:00
PROVIDERS: ATTEND General Practice
DX: C50.311 Malignant neoplasm of lower-inner quadrant of right female breast (principal); C77.1 Secondary and unspecified malignant neoplasm of intrathoracic lymph nodes; Z80.0 Family history of malignant neoplasm of digestive organs; Z87.891 Personal history of nicotine dependence; Z92.21 Personal history of antineoplastic chemotherapy

== ENCOUNTER → 2021-06-08 | Outpatient (CLI) | payer BC ==
[~2021-06-08] MED LIST changes: -LIDO2SOL9 PO
== END ==
LOC: M WHC 12:41
PROVIDERS: ATTEND Internal Medicine Medical Oncology
DX: Z78.0 Asymptomatic menopausal state (principal); C50.911 Malignant neoplasm of unspecified site of right female breast

== ENCOUNTER → 2021-06-17 | Outpatient (RCR) | payer BC | LOC: M ONCR 05-28 08:40 | PROVIDERS: ATTEND General Practice | DX: C50.311 Malignant neoplasm of lower-inner quadrant of right female breast (principal) ==

== ENCOUNTER 2021-07-16 07:41 | Outpatient (RCR) | payer BC ==
[~2021-07-16 07:41] MED LIST changes: +LIDO2SOL9 PO
== END 2021-07-17 ==
LOC: M ONCR 07:41
PROVIDERS: ATTEND General Practice
DX: C50.311 Malignant neoplasm of lower-inner quadrant of right female breast (principal)

== ENCOUNTER 2021-07-19 07:42 | Outpatient (RCR) | payer BC | END 2021-08-17 | LOC: M ONCR 07:42 | PROVIDERS: ATTEND General Practice | DX: C50.311 Malignant neoplasm of lower-inner quadrant of right female breast (principal) ==

== ENCOUNTER → 2021-08-13 | Outpatient (REF) | payer BC ==
[2021-08-13 16:11] LABS: APPEARANCE, URINE HAZY (CLEAR); BACTERIA, URINE AUTO 1+ (NEGATIVE); BILIRUBIN, URINE AUTO NEGATIVE (NEGATIVE); BLOOD, URINE BLOOD NEGATIVE (NEGATIVE); COLOR, URINE YELLOW (YELLOW); GLUCOSE, URINE (UA) AUTO NEGATIVE (NEGATIVE); KETONE, URINE AUTO NEGATIVE (NEGATIVE); LEUKOCYTE ESTERASE, URINE AUTO 3+ (NEGATIVE); MUCUS, URINE SMALL (NEGATIVE); NITRITE, URINE AUTO NEGATIVE (NEGATIVE); PROTEIN, URINE AUTO NEGATIVE (NEGATIVE); RBC, URINE AUTO 6 /HPF (0-3); SPECIFIC GRAVITY URINE AUTO 1.013 (1.002-1.035); SQUAMOUS EPITHELIAL CELL UR AU 4 /HPF (0-6); UROBILINOGEN, URINE AUTO 0.2 mg/dL (0.0-2.0); WBC, URINE AUTO 157 /HPF (0-3)
== END ==
LOC: M LAB REF 15:02
PROVIDERS: ATTEND Nurse Practitioner Adult Health
DX: R30.0 Dysuria (principal)

== ENCOUNTER → 2021-08-17 | Outpatient (RCR) | payer BC | LOC: M PT 07-23 08:17 | PROVIDERS: ATTEND Internal Medicine Medical Oncology | DX: R22.43 Localized swelling, mass and lump, lower limb, bilateral (principal) ==

== ENCOUNTER → 2021-09-03 | Outpatient (REF) | payer BC ==
[2021-09-03 15:51] LABS: AMORPHOUS SEDIMENT SMALL (NEGATIVE); APPEARANCE, URINE CLOUDY (CLEAR); BACTERIA, URINE AUTO NEGATIVE (NEGATIVE); BILIRUBIN, URINE AUTO NEGATIVE (NEGATIVE); BLOOD, URINE BLOOD NEGATIVE (NEGATIVE); COLOR, URINE YELLOW (YELLOW); GLUCOSE, URINE (UA) AUTO NEGATIVE (NEGATIVE); KETONE, URINE AUTO NEGATIVE (NEGATIVE); LEUKOCYTE ESTERASE, URINE AUTO 3+ (NEGATIVE); MUCUS, URINE SMALL (NEGATIVE); NITRITE, URINE AUTO NEGATIVE (NEGATIVE); PROTEIN, URINE AUTO NEGATIVE (NEGATIVE); RBC, URINE AUTO 3 /HPF (0-3); SPECIFIC GRAVITY URINE AUTO 1.011 (1.002-1.035); SQUAMOUS EPITHELIAL CELL UR AU 0 /HPF (0-6); UROBILINOGEN, URINE AUTO 0.2 mg/dL (0.0-2.0); WBC, URINE AUTO TNTC /HPF (0-3)
== END ==
LOC: M LAB REF 15:16
PROVIDERS: ATTEND Nurse Practitioner Adult Health
DX: R30.0 Dysuria (principal)

== ENCOUNTER → 2021-09-03 | Outpatient (CLI) | payer BC | LOC: M RAD 16:03 | PROVIDERS: ATTEND Internal Medicine Medical Oncology | DX: R22.42 Localized swelling, mass and lump, left lower limb (principal) ==

== ENCOUNTER 2021-09-13 09:15 | Outpatient (RCR) | payer BC | END 2021-09-16 | LOC: M PT 09:15 | PROVIDERS: ATTEND Internal Medicine Medical Oncology | DX: R22.41 Localized swelling, mass and lump, right lower limb (principal) ==

== ENCOUNTER → 2021-09-22 | Outpatient (CLI) | payer BC ==
[~2021-09-22] MED LIST changes: +LIDO1CRE42; +METH-1164 PO; +PROHANCE 279.3MG/ML 15ML VIAL As Ordered ONE
== END ==
LOC: M RAD 06:55
PROVIDERS: ATTEND Nurse Practitioner Adult Health
DX: M54.6 Pain in thoracic spine (principal); M25.511 Pain in right shoulder; D48.7 Neoplasm of uncertain behavior of other specified sites
CPT/HCPCS: 73223; A9576

== ENCOUNTER → 2021-10-08 | Outpatient (CLI) | payer BC ==
[~2021-10-08] MED LIST changes: -PROHANCE 279.3MG/ML 15ML VIAL As Ordered ONE
[2021-10-08 17:33] LABS: HEMATOCRIT 37.7 % (36.0-47.0); HEMOGLOBIN 12.3 g/dl (12.0-15.5); MEAN CORPUSCULAR HEMOGLOBIN 30.5 pg (27.0-33.0); MEAN CORPUSCULAR HGB CONC 32.6 g/dl (32.0-36.5); MEAN CORPUSCULAR VOLUME 93.5 fl (80.0-96.0); PLATELET COUNT, AUTOMATED 224 10^3/uL (150-450); RED BLOOD COUNT 4.03 10^6/uL (4.00-5.40); WHITE BLOOD COUNT 7.5 10^3/uL (4.0-10.0)
[2021-10-08 17:44] LABS: INR 0.88; PROTHROMBIN TIME 12.3 SECONDS (12.7-14.5)
[2021-10-08 18:11] LABS: ALT/SGPT 36 U/L (12-78); BILIRUBIN,TOTAL 0.4 MG/DL (0.2-1.0); BLOOD UREA NITROGEN 11 MG/DL (7-18); CALCIUM LEVEL 11.3 MG/DL (8.5-10.1); CARBON DIOXIDE LEVEL 31 MEQ/L (21-32); CHLORIDE LEVEL 109 MEQ/L (98-107); CREATININE FOR GFR 0.67 MG/DL (0.55-1.30); GLOMERULAR FILTRATION RATE > 60.0 (>51); GLUCOSE, FASTING 86 MG/DL (70-100); POTASSIUM SERUM 4.7 MEQ/L (3.5-5.1); SODIUM LEVEL 143 MEQ/L (136-145); TOTAL PROTEIN 6.8 GM/DL (6.4-8.2)
== END ==
LOC: M PLALAB 15:06
PROVIDERS: ATTEND Internal Medicine Medical Oncology
DX: C50.911 Malignant neoplasm of unspecified site of right female breast (principal)

== ENCOUNTER 2021-10-12 08:30 | Outpatient (RCR) | payer BC | END 2021-10-17 | LOC: M PT 08:30 | PROVIDERS: ATTEND Internal Medicine Medical Oncology | DX: R22.43 Localized swelling, mass and lump, lower limb, bilateral (principal) ==

== ENCOUNTER → 2021-10-14 | Outpatient (CLI) | payer BC | LOC: M ONCR 08:58 | PROVIDERS: ATTEND General Practice | DX: Z08 Encounter for follow-up examination after completed treatment for malignant neoplasm (principal); M75.91 Shoulder lesion, unspecified, right shoulder; Z85.3 Personal history of malignant neoplasm of breast; Z79.811 Long term (current) use of aromatase inhibitors; Z79.899 Other long term (current) drug therapy; Z87.891 Personal history of nicotine dependence; Z92.3 Personal history of irradiation; Z92.21 Personal history of antineoplastic chemotherapy ==

== ENCOUNTER → 2021-10-27 | Outpatient (CLI) | payer BC ==
[~2021-10-27] MED LIST changes: +LIDOCAINE 1% MDV 20ML VIAL As Ordered ONE; +OXYC-517 PO
[2021-10-27 10:53] VITALS: BP 133/68
== END ==
LOC: M IRPRO 09:50
PROVIDERS: ATTEND General Practice
DX: C79.51 Secondary malignant neoplasm of bone (principal); C50.311 Malignant neoplasm of lower-inner quadrant of right female breast

== ENCOUNTER → 2021-10-28 | Outpatient (CLI) | payer BC ==
[~2021-10-28] MED LIST changes: -LIDOCAINE 1% MDV 20ML VIAL As Ordered ONE
== END ==
LOC: M PLARAD 14:27
PROVIDERS: ATTEND Internal Medicine Medical Oncology
DX: C50.411 Malignant neoplasm of upper-outer quadrant of right female breast (principal); I70.0 Atherosclerosis of aorta; Z95.828 Presence of other vascular implants and grafts; R93.7 Abnormal findings on diagnostic imaging of other parts of musculoskeletal system; R93.2 Abnormal findings on diagnostic imaging of liver and biliary tract
CPT/HCPCS: 78815; A9552

== ENCOUNTER 2021-11-15 07:11 | Outpatient (RCR) | payer BC | END 2021-11-17 | LOC: M ONCR 07:11 | PROVIDERS: ATTEND General Practice | DX: C50.311 Malignant neoplasm of lower-inner quadrant of right female breast (principal); C79.51 Secondary malignant neoplasm of bone ==

== ENCOUNTER → 2021-11-19 | Outpatient (REF) | payer BC | LOC: M LAB REF 15:44 | PROVIDERS: ATTEND Physician Assistant | DX: N39.0 Urinary tract infection, site not specified (principal) ==

== ENCOUNTER 2021-11-30 07:41 | Outpatient (RCR) | payer BC ==
[2021-12-10] MEDS ORDERED: POTA1TAB14 PO (10:42)
[2021-12-13] MEDS ORDERED: CAPE1TAB PO (18:12)
[2021-12-13] MEDS ORDERED: CAPE1TAB2 PO (18:12)
== END 2021-12-17 ==
LOC: M ONCR 07:41
PROVIDERS: ATTEND General Practice
DX: C50.311 Malignant neoplasm of lower-inner quadrant of right female breast (principal); C79.51 Secondary malignant neoplasm of bone

== ENCOUNTER → 2022-02-21 | Outpatient (CLI) | payer BC ==
[~2022-02-21] MED LIST changes: +CAPE1TAB PO; +CAPE1TAB2 PO; +GASTROGRAFIN SOLUTION 30ML As Ordered ONE; +ISOVUE-370 76% 100ML VIAL As Ordered ONE; +POTA1TAB14 PO
== END ==
LOC: M RAD 11:37
PROVIDERS: ATTEND Internal Medicine Medical Oncology
DX: C50.311 Malignant neoplasm of lower-inner quadrant of right female breast (principal); C79.51 Secondary malignant neoplasm of bone; C78.7 Secondary malignant neoplasm of liver and intrahepatic bile duct

== ENCOUNTER → 2022-03-04 | Outpatient (CLI) | payer BC ==
[~2022-03-04] MED LIST changes: -GASTROGRAFIN SOLUTION 30ML As Ordered ONE; -ISOVUE-370 76% 100ML VIAL As Ordered ONE; +ONDA-83 PO; +TRIA1CR80 TOP
== END ==
LOC: M ONCR 09:52
PROVIDERS: ATTEND General Practice
DX: C50.911 Malignant neoplasm of unspecified site of right female breast (principal); C78.7 Secondary malignant neoplasm of liver and intrahepatic bile duct; C79.51 Secondary malignant neoplasm of bone; Z79.811 Long term (current) use of aromatase inhibitors; Z79.899 Other long term (current) drug therapy; Z87.891 Personal history of nicotine dependence; Z92.21 Personal history of antineoplastic chemotherapy; Z92.3 Personal history of irradiation

== ENCOUNTER 2022-03-17 12:39 | Outpatient (RCR) | payer BC, OTHER ==
[2022-03-18] MEDS ORDERED: POTA8CAP10 PO (08:39)
[2022-03-22] MEDS ORDERED: OXYC-517 PO (18:30)
== END 2022-03-19 ==
LOC: M ONCR 12:39
PROVIDERS: ATTEND General Practice
DX: C50.311 Malignant neoplasm of lower-inner quadrant of right female breast (principal); C79.51 Secondary malignant neoplasm of bone; C78.7 Secondary malignant neoplasm of liver and intrahepatic bile duct

== ENCOUNTER → 2022-03-24 | Outpatient (CLI) | payer OTHER ==
[~2022-03-24] MED LIST changes: +HYDR12.55; +NEUR100C PO; +OMEG12002 PO; +POTA8CAP10 PO; +XELO1TAB PO
== END ==
LOC: M WHC 12:13
PROVIDERS: ATTEND Surgery
DX: M79.601 Pain in right arm (principal)

== ENCOUNTER 2022-03-25 10:17 | Emergency (ER) | payer OTHER ==
[~2022-03-25] VITALS: Ht 162.6 cm; Wt 72.3 kg
[~2022-03-25 10:17] MED LIST changes: -HYDR12.55; -NEUR100C PO; -OMEG12002 PO; -XELO1TAB PO
[2022-03-25] MEDS ORDERED: NS 500 ML IV ONE (10:55)
[2022-03-25] MEDS ORDERED: ONDANSETRON 4MG 2ML VIAL IV ONE (10:55)
[2022-03-25] MEDS ORDERED: HYDR12.55 (11:02)
[2022-03-25] MEDS ORDERED: ATOR1TAB21 PO (11:02)
[2022-03-25] MEDS: MORPHINE 4 MG/ML 1ML VIAL IV PRN ×5 (11:18→22:48)
[2022-03-25 11:42] LABS: HEMATOCRIT 33.8 % (36.0-47.0); HEMOGLOBIN 11.4 g/dl (12.0-15.5); MEAN CORPUSCULAR HEMOGLOBIN 32.9 pg (27.0-33.0); MEAN CORPUSCULAR HGB CONC 33.7 g/dl (32.0-36.5); MEAN CORPUSCULAR VOLUME 97.4 fl (80.0-96.0); PLATELET COUNT, AUTOMATED 167 10^3/uL (150-450); RED BLOOD COUNT 3.47 10^6/uL (4.00-5.40); WHITE BLOOD COUNT 1.3 10^3/uL (4.0-10.0)
[2022-03-25 12:02] LABS: ERYTHROCYTE SEDIMENTATION RATE 33 mm/hr (0-30)
[2022-03-25 12:04] LABS: BLOOD UREA NITROGEN 24 MG/DL (9-23); C REACTIVE PROTEIN QUANTITATIV < 0.40 MG/DL (<1.0); CALCIUM LEVEL 10.5 MG/DL (8.5-10.1); CARBON DIOXIDE LEVEL 28 MMOL/L (20-31); CHLORIDE LEVEL 102 MMOL/L (98-107); CREATININE FOR GFR 0.57 MG/DL (0.55-1.30); GLOMERULAR FILTRATION RATE > 60.0 (>51); GLUCOSE, FASTING 113 MG/DL (60-100); POTASSIUM SERUM 3.9 MMOL/L (3.5-5.1); SODIUM LEVEL 138 MMOL/L (136-145)
[2022-03-25 12:15] LABS: RSV AMPLIFICATION NEGATIVE (NEGATIVE)
[2022-03-25] MEDS ORDERED: ISOVUE-370 76% 100ML VIAL As Ordered ONE (12:18)
[2022-03-25 12:22] LABS: ATYPICAL LYMPH 1 % (0-5); BASOPHILS 2 % (0-1); LYMPHOCYTES 53 % (16-44); MONOCYTES 1 % (0-5); NEUTROPHILS 42 % (28-66)
[2022-03-25 12:23] LABS: HYPOCHROMASIA 1+; PLATELET ESTIMATE NORMAL (NORMAL)
[2022-03-25 12:24] LABS: ANISOCYTOSIS 2+
[2022-03-25] MEDS ORDERED: GABAPENTIN 300 MG CAP PO ONE (23:00)
[2022-03-25] MEDS ORDERED: XELO1TAB PO (23:33)
[2022-03-25] MEDS ORDERED: OMEG12002 PO (23:33)
[2022-03-25] MEDS ORDERED: HOME MED LIST COMPLETE! XX SCH (23:35)
[2022-03-26] MEDS: MORPHINE 4 MG/ML 1ML VIAL IV PRN (00:49)
[2022-03-26] MEDS ORDERED: MORPHINE 2 MG/ML 1ML VIAL IV PRN (02:00)
[2022-03-26] MEDS ORDERED: PERCOCET 5MG/325MG TAB PO PRN (02:00)
[2022-03-26] MEDS ORDERED: GABAPENTIN 300 MG CAP PO SCH ×2 (02:20→06:00)
[2022-03-26] MEDS ORDERED: PERC5TAB12 PO (07:25)
[2022-03-26] MEDS ORDERED: NEUR100C PO (07:27)
[2022-03-26 08:40] VITALS: BP 117/65
[2022-03-29] MEDS ORDERED: PERC5TAB12 PO (12:48)
== END 2022-03-26 08:53 | disposition home or self-care (01) ==
LOC: M ED 10:17
DX: G56.91 Unspecified mononeuropathy of right upper limb (principal); I10 Essential (primary) hypertension; C50.919 Malignant neoplasm of unspecified site of unspecified female breast; Z92.21 Personal history of antineoplastic chemotherapy; Z87.891 Personal history of nicotine dependence; Z79.02 Long term (current) use of antithrombotics/antiplatelets; Z79.811 Long term (current) use of aromatase inhibitors; Z79.899 Other long term (current) drug therapy
CPT/HCPCS: 72141; 72146; 73206; 80048; 85025; 85652; 86140; 87631; 93971; 96361; 96374; 96375; 96376; 99285; J2405

== ENCOUNTER → 2022-04-06 | Outpatient (CLI) | payer OTHER ==
[~2022-04-06] VITALS: Ht 160 cm; Wt 74.2 kg
[~2022-04-06] MED LIST changes: +DULO1CAP6 PO; +GABA-282 PO; +HYDR12.55; +NEUR100C PO; +OMEG12002 PO; +SENN-80 PO; +XELO1TAB PO
[2022-04-06 08:48] VITALS: BP 121/78
== END ==
LOC: M PAL 08:37
PROVIDERS: ATTEND Nurse Practitioner Adult Health
DX: C50.911 Malignant neoplasm of unspecified site of right female breast (principal); C79.51 Secondary malignant neoplasm of bone; C78.7 Secondary malignant neoplasm of liver and intrahepatic bile duct; L27.1 Localized skin eruption due to drugs and medicaments taken internally; R20.2 Paresthesia of skin; Z92.21 Personal history of antineoplastic chemotherapy; Z92.3 Personal history of irradiation; Z51.5 Encounter for palliative care; G89.3 Neoplasm related pain (acute) (chronic); M79.2 Neuralgia and neuritis, unspecified; M25.511 Pain in right shoulder; M79.601 Pain in right arm; F32.A Depression, unspecified; F41.9 Anxiety disorder, unspecified; Z79.899 Other long term (current) drug therapy; Z79.891 Long term (current) use of opiate analgesic

== ENCOUNTER 2022-04-18 09:07 | Outpatient (RCR) | payer OTHER ==
[~2022-04-18 09:07] MED LIST changes: +LIDO2SO PO; -LIDO2SOL9 PO; +MECL-136 PO
[2022-04-21] MEDS ORDERED: AMOX875T PO (11:01)
[2022-04-25] MEDS ORDERED: LEVO1TAB39 PO (12:53)
== END 2022-04-19 ==
LOC: M PT 09:07
PROVIDERS: ATTEND Nurse Practitioner Adult Health
DX: I89.0 Lymphedema, not elsewhere classified (principal); C50.919 Malignant neoplasm of unspecified site of unspecified female breast

== ENCOUNTER → 2022-04-19 | Outpatient (RCR) | payer BC, OTHER ==
[~2022-04-19] MED LIST changes: +AMOX875T PO
== END ==
LOC: M ONCR 03-22 11:09
PROVIDERS: ATTEND General Practice
DX: C79.51 Secondary malignant neoplasm of bone (principal); C78.7 Secondary malignant neoplasm of liver and intrahepatic bile duct; C50.311 Malignant neoplasm of lower-inner quadrant of right female breast

== ENCOUNTER → 2022-05-17 | Outpatient (RCR) | payer OTHER ==
[~2022-05-17] MED LIST changes: +BACT800T5 PO; +HYDR1CRE30 TOP; +LEVO1TAB39 PO; -LIDO2SO PO; +LIDO2SOL9 PO; +MIRT1TAB PO
== END ==
LOC: M PT 04-26 15:00
PROVIDERS: ATTEND Nurse Practitioner Adult Health
DX: I89.0 Lymphedema, not elsewhere classified (principal); C50.919 Malignant neoplasm of unspecified site of unspecified female breast

== ENCOUNTER 2022-06-01 08:24 | Emergency (ER) | payer OTHER ==
[~2022-06-01] VITALS: Ht 160 cm; Wt 68.2 kg
[~2022-06-01 08:24] MED LIST changes: +FERR325T3 PO
[2022-06-01] MEDS ORDERED: SODIUM CHLORIDE 0.9% INJ 10 ML SYR IV PRN (08:35)
[2022-06-01] MEDS ORDERED: NS 1,000 ML IV ONE ×2 (08:40→13:15)
[2022-06-01 09:15] LABS: BASO % 1.5 % (0.0-1.0); EOS % 1.5 % (0.0-3.0); HEMATOCRIT 27.8 % (36.0-47.0); HEMOGLOBIN 9.1 g/dl (12.0-15.5); LYMPH # 0.5 10^3/uL (1.5-5.0); LYMPH % 26.9 % (24.0-44.0); MEAN CORPUSCULAR HEMOGLOBIN 32.6 pg (27.0-33.0); MEAN CORPUSCULAR HGB CONC 32.7 g/dl (32.0-36.5); MEAN CORPUSCULAR VOLUME 99.6 fl (80.0-96.0); MONO # 0.5 10^3/uL (0.0-0.8); MONO % 26.4 % (2.0-8.0); NEUTROPHILS % 43.2 % (36.0-66.0); PLATELET COUNT, AUTOMATED 226 10^3/uL (150-450); RED BLOOD COUNT 2.79 10^6/uL (4.00-5.40)
[2022-06-01 09:30] LABS: NEUTROPHILS # 0.9 10^3/uL (1.5-8.5)
[2022-06-01 09:40] LABS: ALBUMIN 3.3 G/DL (3.2-5.2); BILIRUBIN,DIRECT 0.2 MG/DL (<0.4); BILIRUBIN,TOTAL 0.6 MG/DL (0.3-1.2); CALCIUM LEVEL 8.8 MG/DL (8.5-10.1); CREATININE FOR GFR 4.44 MG/DL (0.55-1.30); GLOMERULAR FILTRATION RATE 10.8 (>51); MAGNESIUM LEVEL 1.6 MG/DL (1.8-2.4); POTASSIUM SERUM 2.9 MMOL/L (3.5-5.1); TOTAL PROTEIN 5.5 G/DL (5.7-8.2)
[2022-06-01] MEDS ORDERED: KCL 20MEQ IN 100ML SWI (KRUN) 20 MEQ in IV 1 EA IV ONE ×2 (09:50)
[2022-06-01] MEDS ORDERED: MAG SULF 1GM/100ML (MAG RUN) 1 GM in IV 1 EA IV ONE (09:50)
[2022-06-01] MEDS: KCL 10MEQ/100ML SWI (KRUN) 100 ML IV SCH ×2 (10:03→11:28)
[2022-06-01] MEDS ORDERED: PERCOCET 5MG/325MG TAB PO ONE (18:00)
[2022-06-01 19:15] VITALS: BP 123/56
[2022-06-01 19:20] LABS: RSV AMPLIFICATION NEGATIVE (NEGATIVE)
== END 2022-06-01 20:21 | disposition short-term general hospital (02) ==
LOC: M ED 08:24
DX: K83.1 Obstruction of bile duct (principal); N17.9 Acute kidney failure, unspecified; C50.919 Malignant neoplasm of unspecified site of unspecified female breast; E87.6 Hypokalemia; C79.51 Secondary malignant neoplasm of bone; I10 Essential (primary) hypertension; E78.5 Hyperlipidemia, unspecified; F10.10 Alcohol abuse, uncomplicated; Z87.891 Personal history of nicotine dependence; Z79.891 Long term (current) use of opiate analgesic; Z79.83 Long term (current) use of bisphosphonates; Z79.899 Other long term (current) drug therapy
CPT/HCPCS: 70450; 71045; 74176; 74181; 80047; 80048; 80076; 81001; 83605; 83690; 83735; 85025; 87040; 87088; 87186; 87631; 93005; 96365; 96366; 99285; J3475

== ENCOUNTER → 2022-06-09 | Outpatient (CLI) | payer OTHER ==
[~2022-06-09] MED LIST changes: +DEXA4TA PO
== END ==
LOC: M PAL 07:46
PROVIDERS: ATTEND Nurse Practitioner Family
DX: C50.911 Malignant neoplasm of unspecified site of right female breast (principal); C79.51 Secondary malignant neoplasm of bone; C78.7 Secondary malignant neoplasm of liver and intrahepatic bile duct; I10 Essential (primary) hypertension; E78.5 Hyperlipidemia, unspecified; Z80.1 Family history of malignant neoplasm of trachea, bronchus and lung; Z79.899 Other long term (current) drug therapy; Z79.891 Long term (current) use of opiate analgesic; Z51.5 Encounter for palliative care

== ENCOUNTER → 2022-06-13 | Outpatient (CLI) | payer OTHER ==
[~2022-06-13] MED LIST changes: +PROHANCE 279.3MG/ML 15ML VIAL As Ordered ONE
== END ==
LOC: M RAD 16:15
PROVIDERS: ATTEND General Practice
DX: C50.311 Malignant neoplasm of lower-inner quadrant of right female breast (principal); C79.51 Secondary malignant neoplasm of bone; C78.7 Secondary malignant neoplasm of liver and intrahepatic bile duct
CPT/HCPCS: 70553; A9576

== ENCOUNTER → 2022-06-15 | Outpatient (CLI) | payer OTHER ==
[~2022-06-15] MED LIST changes: -PROHANCE 279.3MG/ML 15ML VIAL As Ordered ONE
[2022-06-15 14:10] LABS: HEMOGLOBIN 9.4 g/dl (12.0-15.5); LYMPH # 0.4 10^3/uL (1.5-5.0); LYMPH % 5.5 % (24.0-44.0); MEAN CORPUSCULAR HEMOGLOBIN 31.3 pg (27.0-33.0); MEAN CORPUSCULAR HGB CONC 31.3 g/dl (32.0-36.5); MONO # 0.1 10^3/uL (0.0-0.8); MONO % 1.6 % (2.0-8.0); NEUTROPHILS # 6.5 10^3/uL (1.5-8.5); NEUTROPHILS % 92.5 % (36.0-66.0); PLATELET COUNT, AUTOMATED 150 10^3/uL (150-450); WHITE BLOOD COUNT 7.1 10^3/uL (4.0-10.0)
[2022-06-15 14:39] LABS: ALBUMIN 3.1 G/DL (3.2-5.2); ALKALINE PHOSPHATASE 112 U/L (46-116); ALT/SGPT 84 U/L (7.0-40); AST/SGOT 55 U/L (<34); BILIRUBIN,TOTAL 0.8 MG/DL (0.3-1.2); BLOOD UREA NITROGEN 18 MG/DL (9-23); CALCIUM LEVEL 9.5 MG/DL (8.5-10.1); CARBON DIOXIDE LEVEL 26 MMOL/L (20-31); CHLORIDE LEVEL 103 MMOL/L (98-107); CREATININE FOR GFR 0.52 MG/DL (0.55-1.30); GLOMERULAR FILTRATION RATE > 60.0 (>51); GLUCOSE, FASTING 88 MG/DL (60-100); POTASSIUM SERUM 3.7 MMOL/L (3.5-5.1); SODIUM LEVEL 136 MMOL/L (136-145); TOTAL PROTEIN 5.1 G/DL (5.7-8.2)
== END ==
LOC: M PLAIMG 09:16
PROVIDERS: ATTEND Family Medicine
DX: R05.1 Acute cough (principal); N17.9 Acute kidney failure, unspecified

== ENCOUNTER → 2022-06-24 | Outpatient (CLI) | payer OTHER ==
[~2022-06-24] MED LIST changes: +ISOVUE-370 76% 100ML VIAL As Ordered ONE; +LIDO2SOBTL PO; -LIDO2SOL9 PO; +SENN-186 PO; -SENN-80 PO
== END ==
LOC: M RAD 14:08
PROVIDERS: ATTEND Internal Medicine Medical Oncology
DX: C50.919 Malignant neoplasm of unspecified site of unspecified female breast (principal)
CPT/HCPCS: 71260; Q9967

== ENCOUNTER → 2022-06-30 | Outpatient (CLI) | payer OTHER ==
[~2022-06-30] MED LIST changes: -ISOVUE-370 76% 100ML VIAL As Ordered ONE
== END ==
LOC: M PLARAD 13:48
PROVIDERS: ATTEND General Practice
DX: C50.311 Malignant neoplasm of lower-inner quadrant of right female breast (principal); C79.51 Secondary malignant neoplasm of bone; C78.7 Secondary malignant neoplasm of liver and intrahepatic bile duct

== ENCOUNTER → 2022-07-04 | Outpatient (CLI) | payer OTHER | LOC: M ONCR 11:09 | PROVIDERS: ATTEND General Practice | DX: C50.311 Malignant neoplasm of lower-inner quadrant of right female breast (principal); C78.7 Secondary malignant neoplasm of liver and intrahepatic bile duct; C79.51 Secondary malignant neoplasm of bone; Z79.811 Long term (current) use of aromatase inhibitors; Z79.891 Long term (current) use of opiate analgesic; Z79.899 Other long term (current) drug therapy; Z87.891 Personal history of nicotine dependence; Z92.21 Personal history of antineoplastic chemotherapy; Z92.3 Personal history of irradiation; Z98.890 Other specified postprocedural states ==

== ENCOUNTER → 2022-08-04 | Outpatient (CLI) | payer OTHER ==
[~2022-08-04] VITALS: Ht 160 cm; Wt 65.4 kg
[~2022-08-04] MED LIST changes: +CYMB1CAP5 PO; +POTA-298 PO; -POTA1TAB14 PO
[2022-08-04 08:08] VITALS: BP 94/70
== END ==
LOC: M PAL 07:57
PROVIDERS: ATTEND Nurse Practitioner Adult Health
DX: C50.919 Malignant neoplasm of unspecified site of unspecified female breast (principal); C79.51 Secondary malignant neoplasm of bone; C78.7 Secondary malignant neoplasm of liver and intrahepatic bile duct; Z51.5 Encounter for palliative care; Z92.3 Personal history of irradiation; Z92.21 Personal history of antineoplastic chemotherapy; G62.9 Polyneuropathy, unspecified; I89.0 Lymphedema, not elsewhere classified; G89.3 Neoplasm related pain (acute) (chronic); G47.00 Insomnia, unspecified; Z79.52 Long term (current) use of systemic steroids; Z79.891 Long term (current) use of opiate analgesic; Z79.899 Other long term (current) drug therapy; Z80.1 Family history of malignant neoplasm of trachea, bronchus and lung; Z87.891 Personal history of nicotine dependence

== ENCOUNTER → 2022-09-06 | Outpatient (CLI) | payer OTHER ==
[~2022-09-06] VITALS: Ht 162.6 cm; Wt 67.0 kg
[~2022-09-06] MED LIST changes: +PREG25CA PO
[2022-09-06 08:30] VITALS: BP 118/84; O2SAT 94
== END ==
LOC: M PAL 07:52
PROVIDERS: ATTEND Nurse Practitioner Adult Health
DX: C50.919 Malignant neoplasm of unspecified site of unspecified female breast (principal); C79.51 Secondary malignant neoplasm of bone; C78.7 Secondary malignant neoplasm of liver and intrahepatic bile duct; Z51.5 Encounter for palliative care; G62.0 Drug-induced polyneuropathy; I97.2 Postmastectomy lymphedema syndrome; G89.3 Neoplasm related pain (acute) (chronic); Z79.891 Long term (current) use of opiate analgesic; Z87.891 Personal history of nicotine dependence; Z80.1 Family history of malignant neoplasm of trachea, bronchus and lung; Z80.3 Family history of malignant neoplasm of breast; Z92.21 Personal history of antineoplastic chemotherapy; Z92.3 Personal history of irradiation

== ENCOUNTER → 2022-09-16 | Outpatient (CLI) | payer OTHER ==
[~2022-09-16] MED LIST changes: +GASTROGRAFIN SOLUTION 30ML As Ordered ONE; +ISOVUE-370 76% 100ML VIAL As Ordered ONE
[2022-09-16 10:06] LABS: ALBUMIN 3.4 G/DL (3.2-5.2); ALKALINE PHOSPHATASE 115 U/L (46-116); ALT/SGPT 10 U/L (7.0-40); AST/SGOT 26 U/L (<34); BILIRUBIN,TOTAL 0.4 MG/DL (0.3-1.2); BLOOD UREA NITROGEN 9 MG/DL (9-23); CALCIUM LEVEL 8.5 MG/DL (8.5-10.1); CARBON DIOXIDE LEVEL 29 MMOL/L (20-31); CHLORIDE LEVEL 108 MMOL/L (98-107); CREATININE FOR GFR 0.45 MG/DL (0.55-1.30); GLOMERULAR FILTRATION RATE > 60.0 (>51); GLUCOSE, FASTING 90 MG/DL (60-100); SODIUM LEVEL 141 MMOL/L (136-145); TOTAL PROTEIN 5.9 G/DL (5.7-8.2)
== END ==
LOC: M LAB 09:12
PROVIDERS: ATTEND General Practice
DX: C50.911 Malignant neoplasm of unspecified site of right female breast (principal); C79.51 Secondary malignant neoplasm of bone
CPT/HCPCS: 36415; 71260; 74177; 80053; Q9963; Q9967

== ENCOUNTER → 2022-09-21 | Outpatient (CLI) | payer OTHER ==
[~2022-09-21] MED LIST changes: -GASTROGRAFIN SOLUTION 30ML As Ordered ONE; -ISOVUE-370 76% 100ML VIAL As Ordered ONE
== END ==
LOC: M ONCR 08:57
PROVIDERS: ATTEND General Practice
DX: C50.311 Malignant neoplasm of lower-inner quadrant of right female breast (principal); C79.51 Secondary malignant neoplasm of bone; C78.7 Secondary malignant neoplasm of liver and intrahepatic bile duct; J91.8 Pleural effusion in other conditions classified elsewhere; Z92.21 Personal history of antineoplastic chemotherapy; Z92.3 Personal history of irradiation; Z71.2 Person consulting for explanation of examination or test findings; Z87.891 Personal history of nicotine dependence; Z79.899 Other long term (current) drug therapy

== ENCOUNTER → 2022-11-08 | Outpatient (CLI) | payer OTHER ==
[~2022-11-08] MED LIST changes: -LIDO1CRE42; -LIDO1CRE42 TOP; +LIDO30CR18; +LIDO30CR18 TOP; +LYRI75CA PO; +OXYC10TA12 PO; +PREG50CA PO
== END ==
LOC: M PAL 09:05
PROVIDERS: ATTEND Nurse Practitioner Adult Health
DX: C50.919 Malignant neoplasm of unspecified site of unspecified female breast (principal); C79.51 Secondary malignant neoplasm of bone; C78.7 Secondary malignant neoplasm of liver and intrahepatic bile duct; Z51.5 Encounter for palliative care; G62.9 Polyneuropathy, unspecified; G89.3 Neoplasm related pain (acute) (chronic); R60.0 Localized edema; I89.0 Lymphedema, not elsewhere classified; Z66 Do not resuscitate; Z79.891 Long term (current) use of opiate analgesic; Z79.899 Other long term (current) drug therapy; Z80.1 Family history of malignant neoplasm of trachea, bronchus and lung; Z87.891 Personal history of nicotine dependence; Z92.21 Personal history of antineoplastic chemotherapy; Z92.3 Personal history of irradiation

== ENCOUNTER → 2022-12-13 | Outpatient (CLI) | payer OTHER ==
[~2022-12-13] MED LIST changes: +MIRT-88 PO
== END ==
LOC: M PAL 08:29
PROVIDERS: ATTEND Nurse Practitioner Adult Health
DX: C50.919 Malignant neoplasm of unspecified site of unspecified female breast (principal); C79.51 Secondary malignant neoplasm of bone; C78.7 Secondary malignant neoplasm of liver and intrahepatic bile duct; Z51.5 Encounter for palliative care; G56.91 Unspecified mononeuropathy of right upper limb; G57.83 Other specified mononeuropathies of bilateral lower limbs; G89.3 Neoplasm related pain (acute) (chronic); R60.0 Localized edema; I89.0 Lymphedema, not elsewhere classified; Z66 Do not resuscitate; Z79.1 Long term (current) use of non-steroidal anti-inflammatories (NSAID); Z79.891 Long term (current) use of opiate analgesic; Z79.899 Other long term (current) drug therapy; Z80.1 Family history of malignant neoplasm of trachea, bronchus and lung; Z87.442 Personal history of urinary calculi; Z87.891 Personal history of nicotine dependence; Z92.21 Personal history of antineoplastic chemotherapy; Z92.3 Personal history of irradiation; Z99.89 Dependence on other enabling machines and devices

== ENCOUNTER → 2022-12-20 | Outpatient (CLI) | payer OTHER ==
[~2022-12-20] MED LIST changes: +GASTROGRAFIN SOLUTION 30ML As Ordered ONE; +ISOVUE-370 76% 100ML VIAL As Ordered ONE
== END ==
LOC: M RAD 15:17
PROVIDERS: ATTEND General Practice
DX: C50.311 Malignant neoplasm of lower-inner quadrant of right female breast (principal); J90 Pleural effusion, not elsewhere classified; C78.7 Secondary malignant neoplasm of liver and intrahepatic bile duct; C79.51 Secondary malignant neoplasm of bone
CPT/HCPCS: 71260; 74177; Q9963; Q9967

== ENCOUNTER → 2022-12-22 | Outpatient (CLI) | payer OTHER ==
[~2022-12-22] MED LIST changes: -GASTROGRAFIN SOLUTION 30ML As Ordered ONE; -ISOVUE-370 76% 100ML VIAL As Ordered ONE
== END ==
LOC: M ONCR 08:48
PROVIDERS: ATTEND General Practice
DX: C50.311 Malignant neoplasm of lower-inner quadrant of right female breast (principal); C79.51 Secondary malignant neoplasm of bone; C78.7 Secondary malignant neoplasm of liver and intrahepatic bile duct; Z63.4 Disappearance and death of family member; Z71.2 Person consulting for explanation of examination or test findings; Z79.891 Long term (current) use of opiate analgesic; Z87.891 Personal history of nicotine dependence; Z92.21 Personal history of antineoplastic chemotherapy; Z92.3 Personal history of irradiation; Z98.890 Other specified postprocedural states

== ENCOUNTER → 2023-01-10 | Outpatient (CLI) | payer OTHER ==
[~2023-01-10] VITALS: Ht 160 cm; Wt 66.4 kg
[~2023-01-10] MED LIST changes: +ATIV1TAB10 PO; +LORA1TAB23 PO; +PREG100CA PO
[2023-01-10 08:06] VITALS: BP 144/88; O2SAT 95
== END ==
LOC: M PAL 07:58
PROVIDERS: ATTEND Nurse Practitioner Adult Health
DX: C50.919 Malignant neoplasm of unspecified site of unspecified female breast (principal); C79.51 Secondary malignant neoplasm of bone; C78.7 Secondary malignant neoplasm of liver and intrahepatic bile duct; Z51.5 Encounter for palliative care; G47.00 Insomnia, unspecified; G56.91 Unspecified mononeuropathy of right upper limb; G57.83 Other specified mononeuropathies of bilateral lower limbs; G89.3 Neoplasm related pain (acute) (chronic); R60.0 Localized edema; Z66 Do not resuscitate; Z79.1 Long term (current) use of non-steroidal anti-inflammatories (NSAID); Z79.891 Long term (current) use of opiate analgesic; Z79.899 Other long term (current) drug therapy; Z80.1 Family history of malignant neoplasm of trachea, bronchus and lung; Z87.442 Personal history of urinary calculi; Z87.891 Personal history of nicotine dependence; Z92.21 Personal history of antineoplastic chemotherapy; Z92.3 Personal history of irradiation; Z99.89 Dependence on other enabling machines and devices; Z63.4 Disappearance and death of family member

== ENCOUNTER → 2023-02-07 | Outpatient (CLI) | payer OTHER ==
[~2023-02-07] VITALS: Ht 160 cm; Wt 69.9 kg
[~2023-02-07] MED LIST changes: +IBUP1TAB6 PO
[2023-02-07 08:45] VITALS: BP 125/86; O2SAT 96
== END ==
LOC: M PAL 08:29
PROVIDERS: ATTEND Nurse Practitioner Adult Health
DX: C50.919 Malignant neoplasm of unspecified site of unspecified female breast (principal); C79.51 Secondary malignant neoplasm of bone; C78.7 Secondary malignant neoplasm of liver and intrahepatic bile duct; F32.A Depression, unspecified; F41.9 Anxiety disorder, unspecified; Z51.5 Encounter for palliative care; G47.00 Insomnia, unspecified; G56.93 Unspecified mononeuropathy of bilateral upper limbs; G57.83 Other specified mononeuropathies of bilateral lower limbs; G89.3 Neoplasm related pain (acute) (chronic); R60.0 Localized edema; R53.83 Other fatigue; Z66 Do not resuscitate; Z79.1 Long term (current) use of non-steroidal anti-inflammatories (NSAID); Z79.891 Long term (current) use of opiate analgesic; Z79.899 Other long term (current) drug therapy; Z80.1 Family history of malignant neoplasm of trachea, bronchus and lung; Z87.442 Personal history of urinary calculi; Z87.891 Personal history of nicotine dependence; Z92.21 Personal history of antineoplastic chemotherapy; Z92.3 Personal history of irradiation; Z99.89 Dependence on other enabling machines and devices; Z63.4 Disappearance and death of family member

== ENCOUNTER 2023-02-14 09:44 | Outpatient (RCR) | payer OTHER ==
[2023-02-16] MEDS ORDERED: LISI5TAB11 PO (16:14)
== END 2023-02-16 ==
LOC: M PT 09:44
PROVIDERS: ATTEND Nurse Practitioner Adult Health
DX: I89.0 Lymphedema, not elsewhere classified (principal)

== ENCOUNTER 2023-03-08 13:53 | Outpatient (RCR) | payer OTHER ==
[~2023-03-08 13:53] MED LIST changes: +LIDO100S29 PO; -LIDO2SOBTL PO
[2023-03-09] MEDS ORDERED: ATOR1TAB21 (09:38)
[2023-03-09] MEDS ORDERED: OXYC-517 PO (10:20)
[2023-03-09] MEDS ORDERED: PREG25CA PO (10:20)
[2023-03-09] MEDS ORDERED: ATIV1TAB10 PO (10:20)
[2023-03-09] MEDS ORDERED: PREG100CA PO (10:20)
== END 2023-03-19 ==
LOC: M PT 13:53
PROVIDERS: ATTEND Nurse Practitioner Adult Health
DX: I89.0 Lymphedema, not elsewhere classified (principal)

== ENCOUNTER → 2023-03-09 | Outpatient (CLI) | payer OTHER ==
[~2023-03-09] VITALS: Ht 160 cm; Wt 72.6 kg
[~2023-03-09] MED LIST changes: +ATOR1TAB21
[2023-03-09 09:34] VITALS: BP 137/85; O2SAT 96
== END ==
LOC: M PAL 08:19
PROVIDERS: ATTEND Nurse Practitioner Adult Health
DX: C50.919 Malignant neoplasm of unspecified site of unspecified female breast (principal); C79.51 Secondary malignant neoplasm of bone; C78.7 Secondary malignant neoplasm of liver and intrahepatic bile duct; F32.A Depression, unspecified; F41.9 Anxiety disorder, unspecified; Z51.5 Encounter for palliative care; G47.00 Insomnia, unspecified; G56.93 Unspecified mononeuropathy of bilateral upper limbs; G89.3 Neoplasm related pain (acute) (chronic); I89.0 Lymphedema, not elsewhere classified; R60.0 Localized edema; R53.83 Other fatigue; Z66 Do not resuscitate; Z79.1 Long term (current) use of non-steroidal anti-inflammatories (NSAID); Z79.891 Long term (current) use of opiate analgesic; Z79.899 Other long term (current) drug therapy; Z80.1 Family history of malignant neoplasm of trachea, bronchus and lung; Z87.442 Personal history of urinary calculi; Z87.891 Personal history of nicotine dependence; Z92.21 Personal history of antineoplastic chemotherapy; Z92.3 Personal history of irradiation; Z99.89 Dependence on other enabling machines and devices; Z63.4 Disappearance and death of family member

== ENCOUNTER 2023-03-23 10:20 | Outpatient (RCR) | payer BC, OTHER, SELFPAY ==
[2023-03-27] MEDS ORDERED: XELO1TAB PO (10:01)
[2023-04-06] MEDS ORDERED: OXYC-517 PO (13:27)
[2023-04-11] MEDS ORDERED: PREG25CA PO (16:19)
[2023-04-13] MEDS ORDERED: HYDR12.55 PO (09:52)
[2023-04-13] MEDS ORDERED: MIRT-84 PO (09:53)
[2023-04-13] MEDS ORDERED: ATIV1TAB10 PO (10:22)
[2023-04-13] MEDS ORDERED: PREG150C2 PO (10:22)
== END 2023-04-19 ==
LOC: M PT 10:20
PROVIDERS: ATTEND Nurse Practitioner Adult Health
DX: I89.0 Lymphedema, not elsewhere classified (principal)

== ENCOUNTER → 2023-03-31 | Outpatient (CLI) | payer BC, OTHER | LOC: M ONCR 08:35 | PROVIDERS: ATTEND General Practice | DX: C50.311 Malignant neoplasm of lower-inner quadrant of right female breast (principal); C79.51 Secondary malignant neoplasm of bone; C78.7 Secondary malignant neoplasm of liver and intrahepatic bile duct; Z63.4 Disappearance and death of family member; Z71.2 Person consulting for explanation of examination or test findings; Z79.1 Long term (current) use of non-steroidal anti-inflammatories (NSAID); Z79.891 Long term (current) use of opiate analgesic; Z79.899 Other long term (current) drug therapy; Z87.891 Personal history of nicotine dependence; Z92.21 Personal history of antineoplastic chemotherapy; Z92.3 Personal history of irradiation ==

== ENCOUNTER → 2023-04-13 | Outpatient (CLI) | payer OTHER ==
[~2023-04-13] VITALS: Ht 162.6 cm; Wt 75.4 kg
[~2023-04-13] MED LIST changes: +MIRT-84 PO; +PREG150C2 PO
[2023-04-13 09:46] VITALS: BP 141/90; O2SAT 95
== END ==
LOC: M PAL 09:12
PROVIDERS: ATTEND Nurse Practitioner Adult Health
DX: C50.919 Malignant neoplasm of unspecified site of unspecified female breast (principal); C79.51 Secondary malignant neoplasm of bone; C78.7 Secondary malignant neoplasm of liver and intrahepatic bile duct; F32.A Depression, unspecified; F41.9 Anxiety disorder, unspecified; Z51.5 Encounter for palliative care; G47.00 Insomnia, unspecified; G56.93 Unspecified mononeuropathy of bilateral upper limbs; G89.3 Neoplasm related pain (acute) (chronic); I89.0 Lymphedema, not elsewhere classified; R53.83 Other fatigue; R60.0 Localized edema; Z63.4 Disappearance and death of family member; Z66 Do not resuscitate; Z79.1 Long term (current) use of non-steroidal anti-inflammatories (NSAID); Z79.891 Long term (current) use of opiate analgesic; Z79.899 Other long term (current) drug therapy; Z80.1 Family history of malignant neoplasm of trachea, bronchus and lung; Z87.442 Personal history of urinary calculi; Z87.891 Personal history of nicotine dependence; Z92.21 Personal history of antineoplastic chemotherapy; Z92.3 Personal history of irradiation; Z99.89 Dependence on other enabling machines and devices

== ENCOUNTER → 2023-04-21 | Outpatient (CLI) | payer BC ==
[~2023-04-21] MED LIST changes: +GASTROGRAFIN SOLUTION 30ML ONE; +ISOVUE-370 76% 100ML VIAL ONE
== END ==
LOC: M PLAIMG 10:47
PROVIDERS: ATTEND Internal Medicine Medical Oncology
DX: C50.911 Malignant neoplasm of unspecified site of right female breast (principal); C79.51 Secondary malignant neoplasm of bone; C78.7 Secondary malignant neoplasm of liver and intrahepatic bile duct
CPT/HCPCS: 71260; 74177; Q9963; Q9967

== ENCOUNTER → 2023-05-17 | Outpatient (CLI) | payer OTHER ==
[~2023-05-17] VITALS: Ht 160 cm; Wt 79.4 kg
[~2023-05-17] MED LIST changes: -GASTROGRAFIN SOLUTION 30ML ONE; -ISOVUE-370 76% 100ML VIAL ONE
[2023-05-17 09:08] VITALS: BP 130/82; O2SAT 96
== END ==
LOC: M PAL 08:56
PROVIDERS: ATTEND Nurse Practitioner Adult Health
DX: G89.3 Neoplasm related pain (acute) (chronic) (principal); C50.919 Malignant neoplasm of unspecified site of unspecified female breast; C79.51 Secondary malignant neoplasm of bone; C78.7 Secondary malignant neoplasm of liver and intrahepatic bile duct; F32.A Depression, unspecified; F41.9 Anxiety disorder, unspecified; Z51.5 Encounter for palliative care; G47.00 Insomnia, unspecified; G56.93 Unspecified mononeuropathy of bilateral upper limbs; I89.0 Lymphedema, not elsewhere classified; R53.83 Other fatigue; R60.0 Localized edema; Z63.4 Disappearance and death of family member; Z66 Do not resuscitate; Z79.1 Long term (current) use of non-steroidal anti-inflammatories (NSAID); Z79.891 Long term (current) use of opiate analgesic; Z79.899 Other long term (current) drug therapy; Z80.1 Family history of malignant neoplasm of trachea, bronchus and lung; Z87.442 Personal history of urinary calculi; Z87.891 Personal history of nicotine dependence; Z92.21 Personal history of antineoplastic chemotherapy; Z92.3 Personal history of irradiation; Z99.89 Dependence on other enabling machines and devices

== ENCOUNTER → 2023-06-29 | Outpatient (CLI) | payer OTHER ==
[~2023-06-29] VITALS: Ht 160 cm; Wt 79.2 kg
[~2023-06-29] MED LIST changes: +POTA1TAB21 PO
[2023-06-29 10:07] VITALS: BP 132/82; O2SAT 95
== END ==
LOC: M PAL 09:17
PROVIDERS: ATTEND Nurse Practitioner Adult Health
DX: G89.3 Neoplasm related pain (acute) (chronic) (principal); C50.919 Malignant neoplasm of unspecified site of unspecified female breast; C79.51 Secondary malignant neoplasm of bone; C78.7 Secondary malignant neoplasm of liver and intrahepatic bile duct; Z51.5 Encounter for palliative care; G47.00 Insomnia, unspecified; G56.93 Unspecified mononeuropathy of bilateral upper limbs; I89.0 Lymphedema, not elsewhere classified; R53.83 Other fatigue; R60.0 Localized edema; Z63.4 Disappearance and death of family member; Z66 Do not resuscitate; Z79.1 Long term (current) use of non-steroidal anti-inflammatories (NSAID); Z79.891 Long term (current) use of opiate analgesic; Z79.899 Other long term (current) drug therapy; Z80.1 Family history of malignant neoplasm of trachea, bronchus and lung; Z87.442 Personal history of urinary calculi; Z87.891 Personal history of nicotine dependence; Z92.21 Personal history of antineoplastic chemotherapy; Z92.3 Personal history of irradiation; Z99.89 Dependence on other enabling machines and devices

== ENCOUNTER → 2023-07-24 | Outpatient (CLI) | payer BC ==
[~2023-07-24] MED LIST changes: +GASTROGRAFIN SOLUTION 30ML As Ordered ONE; +ISOVUE-370 76% 100ML VIAL As Ordered ONE
== END ==
LOC: M RAD 08:18
PROVIDERS: ATTEND Internal Medicine Medical Oncology
DX: C50.919 Malignant neoplasm of unspecified site of unspecified female breast (principal); C79.51 Secondary malignant neoplasm of bone; C78.7 Secondary malignant neoplasm of liver and intrahepatic bile duct
CPT/HCPCS: 71260; 74177; Q9963; Q9967

== ENCOUNTER 2023-09-19 09:51 | Outpatient (RCR) | payer BC ==
[~2023-09-19 09:51] MED LIST changes: +CEPH500C PO; -GASTROGRAFIN SOLUTION 30ML As Ordered ONE; -ISOVUE-370 76% 100ML VIAL As Ordered ONE
[2023-10-10] MEDS ORDERED: OXYC10TA12 PO (09:31)
[2023-10-10] MEDS ORDERED: DULO30CA9 PO (09:37)
== END 2023-10-18 ==
LOC: M PT 09:51
PROVIDERS: ATTEND Nurse Practitioner Adult Health
DX: I89.0 Lymphedema, not elsewhere classified (principal)

== ENCOUNTER → 2023-09-29 | Outpatient (CLI) | payer BC ==
[~2023-09-29] MED LIST changes: +DULO30CA9 PO
== END ==
LOC: M ONCR 09:14
PROVIDERS: ATTEND General Practice
DX: C50.311 Malignant neoplasm of lower-inner quadrant of right female breast (principal); C77.3 Secondary and unspecified malignant neoplasm of axilla and upper limb lymph nodes; C78.7 Secondary malignant neoplasm of liver and intrahepatic bile duct; C79.51 Secondary malignant neoplasm of bone; G62.0 Drug-induced polyneuropathy; Z87.891 Personal history of nicotine dependence; Z92.3 Personal history of irradiation; Z79.899 Other long term (current) drug therapy; Z79.69 Long term (current) use of other immunomodulators and immunosuppressants

== ENCOUNTER → 2023-10-10 | Outpatient (CLI) | payer BC ==
[~2023-10-10] VITALS: Ht 162.6 cm; Wt 82.6 kg
[~2023-10-10] MED LIST changes: +POTA-151 PO
[2023-10-10 08:43] VITALS: BP 108/88; O2SAT 95
== END ==
LOC: M PAL 08:37
PROVIDERS: ATTEND Nurse Practitioner Adult Health
DX: C50.919 Malignant neoplasm of unspecified site of unspecified female breast (principal); C79.51 Secondary malignant neoplasm of bone; G89.3 Neoplasm related pain (acute) (chronic); C78.7 Secondary malignant neoplasm of liver and intrahepatic bile duct; Z51.5 Encounter for palliative care; G47.00 Insomnia, unspecified; G56.93 Unspecified mononeuropathy of bilateral upper limbs; I89.0 Lymphedema, not elsewhere classified; R53.83 Other fatigue; R60.0 Localized edema; Z63.4 Disappearance and death of family member; Z66 Do not resuscitate; Z79.1 Long term (current) use of non-steroidal anti-inflammatories (NSAID); Z79.891 Long term (current) use of opiate analgesic; Z79.899 Other long term (current) drug therapy; Z80.1 Family history of malignant neoplasm of trachea, bronchus and lung; Z87.442 Personal history of urinary calculi; Z87.891 Personal history of nicotine dependence; Z92.21 Personal history of antineoplastic chemotherapy; Z92.3 Personal history of irradiation; Z99.89 Dependence on other enabling machines and devices

== ENCOUNTER → 2023-12-12 | Outpatient (CLI) | payer BC ==
[~2023-12-12] VITALS: Ht 162.6 cm; Wt 89.7 kg
[~2023-12-12] MED LIST changes: +GABA-1172 PO; -GABA-282 PO
[2023-12-12 09:47] VITALS: BP 156/91; O2SAT 95
== END ==
LOC: M PAL 08:51
PROVIDERS: ATTEND Nurse Practitioner Adult Health
DX: G89.3 Neoplasm related pain (acute) (chronic) (principal); C50.919 Malignant neoplasm of unspecified site of unspecified female breast; C79.51 Secondary malignant neoplasm of bone; C78.7 Secondary malignant neoplasm of liver and intrahepatic bile duct; G47.00 Insomnia, unspecified; G60.9 Hereditary and idiopathic neuropathy, unspecified; I89.0 Lymphedema, not elsewhere classified; R60.0 Localized edema; Z63.4 Disappearance and death of family member; Z51.5 Encounter for palliative care; Z66 Do not resuscitate; Z79.1 Long term (current) use of non-steroidal anti-inflammatories (NSAID); Z79.891 Long term (current) use of opiate analgesic; Z79.899 Other long term (current) drug therapy; Z80.1 Family history of malignant neoplasm of trachea, bronchus and lung; Z87.442 Personal history of urinary calculi; Z87.891 Personal history of nicotine dependence; Z92.21 Personal history of antineoplastic chemotherapy; Z92.3 Personal history of irradiation; Z99.89 Dependence on other enabling machines and devices

== ENCOUNTER → 2024-01-02 | Outpatient (CLI) | payer BC ==
[~2024-01-02] MED LIST changes: +FURO40TA2 PO
== END ==
LOC: M ONCR 08:31
PROVIDERS: ATTEND General Practice
DX: C50.811 Malignant neoplasm of overlapping sites of right female breast (principal); C79.51 Secondary malignant neoplasm of bone; C78.7 Secondary malignant neoplasm of liver and intrahepatic bile duct; Z79.1 Long term (current) use of non-steroidal anti-inflammatories (NSAID); R60.0 Localized edema; R53.1 Weakness; R29.6 Repeated falls; Z79.899 Other long term (current) drug therapy; Z92.21 Personal history of antineoplastic chemotherapy; Z92.3 Personal history of irradiation

== ENCOUNTER 2024-01-04 15:42 | Emergency (ER) | payer BC ==
[~2024-01-04] VITALS: Ht 162.6 cm; Wt 81.8 kg
[~2024-01-04 15:42] MED LIST changes: -PROHANCE 279.3MG/ML 15ML VIAL As Ordered ONE; -PROHANCE 279.3MG/ML 5ML VIAL As Ordered ONE
[2024-01-04 20:16] VITALS: BP 109/58; TEMP 97.5; O2SAT 95
== END 2024-01-04 20:17 | disposition home or self-care (01) ==
LOC: M ED 15:42
DX: C79.49 Secondary malignant neoplasm of other parts of nervous system (principal); I10 Essential (primary) hypertension; Z87.442 Personal history of urinary calculi; Z79.02 Long term (current) use of antithrombotics/antiplatelets; Z79.811 Long term (current) use of aromatase inhibitors; Z79.83 Long term (current) use of bisphosphonates; Z79.899 Other long term (current) drug therapy; Z85.3 Personal history of malignant neoplasm of breast

== ENCOUNTER → 2024-01-04 | Outpatient (CLI) | payer BC ==
[~2024-01-04] MED LIST changes: +PROHANCE 279.3MG/ML 15ML VIAL As Ordered ONE; +PROHANCE 279.3MG/ML 5ML VIAL As Ordered ONE
== END ==
LOC: M RAD 13:23
PROVIDERS: ATTEND General Practice
DX: C79.51 Secondary malignant neoplasm of bone (principal); M48.061 Spinal stenosis, lumbar region without neurogenic claudication; M48.04 Spinal stenosis, thoracic region
CPT/HCPCS: 72157; 72158; A9576

== ENCOUNTER → 2024-01-23 | Outpatient (CLI) | payer BC ==
[~2024-01-23] VITALS: Ht 160 cm; Wt 88.9 kg
[2024-01-23 09:47] VITALS: BP 90/60; O2SAT 95
== END ==
LOC: M PAL 08:51
PROVIDERS: ATTEND Nurse Practitioner Adult Health
DX: G89.3 Neoplasm related pain (acute) (chronic) (principal); C50.919 Malignant neoplasm of unspecified site of unspecified female breast; C79.51 Secondary malignant neoplasm of bone; C78.7 Secondary malignant neoplasm of liver and intrahepatic bile duct; G47.00 Insomnia, unspecified; G62.9 Polyneuropathy, unspecified; I89.0 Lymphedema, not elsewhere classified; R60.0 Localized edema; Z63.4 Disappearance and death of family member; Z51.5 Encounter for palliative care; Z66 Do not resuscitate; Z79.1 Long term (current) use of non-steroidal anti-inflammatories (NSAID); Z79.891 Long term (current) use of opiate analgesic; Z79.899 Other long term (current) drug therapy; Z80.1 Family history of malignant neoplasm of trachea, bronchus and lung; Z87.442 Personal history of urinary calculi; Z87.891 Personal history of nicotine dependence; Z92.21 Personal history of antineoplastic chemotherapy; Z92.3 Personal history of irradiation; Z99.89 Dependence on other enabling machines and devices

== ENCOUNTER → 2024-01-23 | Outpatient (CLI) | payer BC | LOC: M ONCR 10:13 | PROVIDERS: ATTEND General Practice | DX: C50.311 Malignant neoplasm of lower-inner quadrant of right female breast (principal); C78.7 Secondary malignant neoplasm of liver and intrahepatic bile duct; R53.1 Weakness; Z92.3 Personal history of irradiation; Z98.890 Other specified postprocedural states; Z92.21 Personal history of antineoplastic chemotherapy; R29.6 Repeated falls; C79.51 Secondary malignant neoplasm of bone; Z87.891 Personal history of nicotine dependence; Z79.899 Other long term (current) drug therapy ==

== ENCOUNTER → 2024-01-31 | Outpatient (CLI) | payer BC ==
[~2024-01-31] MED LIST changes: +GASTROGRAFIN SOLUTION 30ML As Ordered ONE; +ISOVUE-370 76% 100ML VIAL As Ordered ONE
== END ==
LOC: M RAD 15:27
PROVIDERS: ATTEND Internal Medicine Hematology & Oncology
DX: C50.919 Malignant neoplasm of unspecified site of unspecified female breast (principal); R91.8 Other nonspecific abnormal finding of lung field
CPT/HCPCS: 71260; 74177; Q9963; Q9967

== ENCOUNTER 2024-02-07 10:21 | Outpatient (RCR) | payer BC ==
[~2024-02-07 10:21] MED LIST changes: -GASTROGRAFIN SOLUTION 30ML As Ordered ONE; -ISOVUE-370 76% 100ML VIAL As Ordered ONE
[2024-02-12] MEDS ORDERED: FURO40TA2 PO (10:45)
[2024-02-19] MEDS ORDERED: OXYC10TA12 PO (08:32)
[2024-02-20] MEDS ORDERED: PREG150C2 PO (13:16)
== END 2024-02-17 ==
LOC: M ONCR 10:21
PROVIDERS: ATTEND General Practice
DX: Z51.0 Encounter for antineoplastic radiation therapy (principal); C79.51 Secondary malignant neoplasm of bone

== ENCOUNTER 2024-02-08 13:53 | Outpatient (RCR) | payer BC ==
[2024-02-12] MEDS ORDERED: FURO40TA2 PO (10:45)
[2024-02-19] MEDS ORDERED: OXYC10TA12 PO (08:32)
[2024-02-20] MEDS ORDERED: PREG150C2 PO (13:16)
== END 2024-02-17 ==
LOC: M PT 13:53
PROVIDERS: ATTEND General Practice
DX: R53.1 Weakness (principal); C79.51 Secondary malignant neoplasm of bone; G95.29 Other cord compression

== ENCOUNTER 2024-02-22 12:58 | Outpatient (RCR) | payer BC ==
[~2024-02-22 12:58] MED LIST changes: -ATOR1TAB21
[2024-03-07] MEDS ORDERED: SENN-186 PO (14:22)
[2024-03-07] MEDS ORDERED: ONDA-83 PO (14:22)
[2024-03-12] MEDS ORDERED: LISI5TAB11 PO (16:30)
[2024-03-12] MEDS ORDERED: LORA1TAB23 PO (16:35)
[2024-03-16] MEDS ORDERED: CEFD300CAP PO (12:20)
[2024-03-16] MEDS ORDERED: OSEL75CA2 PO (12:20)
[2024-03-16] MEDS ORDERED: AMLO1TAB24 PO (12:22)
[2024-03-18] MEDS ORDERED: OXYC10TA12 PO (10:26)
[2024-03-18] MEDS ORDERED: LORA1TAB23 PO (10:28)
== END 2024-03-19 ==
LOC: M PT 12:58
PROVIDERS: ATTEND General Practice
DX: G95.20 Unspecified cord compression (principal); R53.83 Other fatigue

== ENCOUNTER 2024-02-23 11:23 | Outpatient (RCR) | payer BC ==
[2024-03-07] MEDS ORDERED: ONDA-83 PO (14:22)
[2024-03-07] MEDS ORDERED: SENN-186 PO (14:22)
[2024-03-12] MEDS ORDERED: LISI5TAB11 PO (16:30)
[2024-03-12] MEDS ORDERED: LORA1TAB23 PO (16:35)
[2024-03-16] MEDS ORDERED: CEFD300CAP PO (12:20)
[2024-03-16] MEDS ORDERED: OSEL75CA2 PO (12:20)
[2024-03-16] MEDS ORDERED: AMLO1TAB24 PO (12:22)
[2024-03-18] MEDS ORDERED: OXYC10TA12 PO (10:26)
[2024-03-18] MEDS ORDERED: LORA1TAB23 PO (10:28)
== END 2024-03-19 ==
LOC: M ONCR 11:23
PROVIDERS: ATTEND General Practice
DX: Z51.0 Encounter for antineoplastic radiation therapy (principal); C79.51 Secondary malignant neoplasm of bone

== ENCOUNTER → 2024-03-07 | Outpatient (CLI) | payer BC ==
[~2024-03-07] VITALS: Ht 160 cm; Wt 89.9 kg
[~2024-03-07] MED LIST changes: +ATOR1TAB21
[2024-03-07 14:16] VITALS: BP 156/76; O2SAT 95
== END ==
LOC: M PAL 13:53
PROVIDERS: ATTEND Family Medicine
DX: Z51.5 Encounter for palliative care (principal); C50.919 Malignant neoplasm of unspecified site of unspecified female breast; C79.51 Secondary malignant neoplasm of bone; C78.7 Secondary malignant neoplasm of liver and intrahepatic bile duct; Z66 Do not resuscitate; G56.93 Unspecified mononeuropathy of bilateral upper limbs; G57.93 Unspecified mononeuropathy of bilateral lower limbs; R11.0 Nausea; Z92.21 Personal history of antineoplastic chemotherapy; K59.00 Constipation, unspecified; G47.00 Insomnia, unspecified; R60.9 Edema, unspecified; Z79.899 Other long term (current) drug therapy

== ENCOUNTER 2024-03-12 11:48 | Inpatient (IN) | payer BC ==
[~2024-03-12] VITALS: Ht 160 cm; Wt 87.5 kg
[~2024-03-12 11:48] MED LIST changes: -ATOR1TAB21; +OSELTAMIVIR PHOSPHATE 30MG CAPSULE PO SCH
[2024-03-12] MEDS: NS (Normal Saline) 0.9% 1,000 ML IV ONE (12:34)
[2024-03-12 12:41] LABS: HEMATOCRIT 31.7 % (36.0-47.0); HEMOGLOBIN 10.5 g/dl (12.0-15.5); MEAN CORPUSCULAR HEMOGLOBIN 30.7 pg (27.0-33.0); MEAN CORPUSCULAR HGB CONC 33.1 g/dl (32.0-36.5); MEAN CORPUSCULAR VOLUME 92.7 fl (80.0-96.0); PLATELET COUNT, AUTOMATED 198 10^3/uL (150-450); RED BLOOD COUNT 3.42 10^6/uL (4.00-5.40)
[2024-03-12 13:12] LABS: BILIRUBIN,DIRECT 0.3 MG/DL (<0.4); BILIRUBIN,TOTAL 0.6 MG/DL (0.3-1.2); MB/CK RELATIVE INDEX 1.31 (< OR =4); TOTAL PROTEIN 6.1 G/DL (5.7-8.2)
[2024-03-12 13:16] LABS: THYROID STIMULATING HORMONE 2.024 uIU/ML (0.55-4.78)
[2024-03-12 13:19] LABS: APPEARANCE, URINE TURBID (CLEAR); BACTERIA, URINE AUTO NEGATIVE (NEGATIVE); BILIRUBIN, URINE AUTO NEGATIVE (NEGATIVE); BLOOD, URINE BLOOD 1+ (NEGATIVE); COLOR, URINE AMBER (YELLOW); GLUCOSE, URINE (UA) AUTO NEGATIVE (NEGATIVE); KETONE, URINE AUTO NEGATIVE (NEGATIVE); LEUKOCYTE ESTERASE, URINE AUTO 3+ (NEGATIVE); NITRITE, URINE AUTO POSITIVE (NEGATIVE); PROTEIN, URINE AUTO 2+ mg/dL (NEGATIVE); RBC, URINE AUTO 9 /HPF (0-3); SQUAMOUS EPITHELIAL CELL UR AU 1 /HPF (0-6); TRANSITIONAL EPITHELIAL AUTO 5 /HPF; UROBILINOGEN, URINE AUTO 0.2 mg/dL (0.0-2.0); WBC, URINE AUTO TNTC /HPF (0-3)
[2024-03-12 13:32] LABS: ATYPICAL LYMPH 4 % (0-5); EOSINOPHILS 2 % (0-3); LYMPHOCYTES 7 % (16-44); METAMYELOCYTES 2 % (0-0); MONOCYTES 8 % (0-5); MYELOCYTES 2 % (0-0); NEUTROPHILS 47 % (28-66); PLATELET ESTIMATE NORMAL (NORMAL)
[2024-03-12] MEDS: NS (Normal Saline) 0.9% 1,000 ML IV SCH (14:35)
[2024-03-12 15:03] LABS: PROCALCITONIN 0.79 ng/ml
[2024-03-12 15:56] VITALS: BP 133/82; TEMP 97.7; O2SAT 98
[2024-03-12] MEDS ORDERED: LISI5TAB11 PO (16:30)
[2024-03-12] MEDS ORDERED: ISOVUE-370 76% 100ML VIAL As Ordered ONE (16:33)
[2024-03-12] MEDS ORDERED: LORA1TAB23 PO (16:35)
[2024-03-12] MEDS ORDERED: HOME MED LIST COMPLETE! XX SCH (16:40)
[2024-03-12] MEDS ORDERED: ONDANSETRON 4MG TAB PO PRN (16:50)
[2024-03-12] MEDS ORDERED: CEFEPIME HCL 1 GM in DEXTROSE 5% (D5W) ADV/MINI-BAG 50 ML IV SCH (16:55)
[2024-03-12 17:14] LABS: CALCIUM LEVEL 8.8 MG/DL (8.3-10.6); CREATININE FOR GFR 1.17 MG/DL (0.55-1.30); GLOMERULAR FILTRATION RATE 50.2 (>45); POTASSIUM SERUM 3.5 MMOL/L (3.5-5.1)
[2024-03-12 17:48] LABS: ABG BASE EXCESS 2.7 (-2.0-2.0); ABG HCO3 27.2 MMOL/L (22.0-26.0); ABG O2 SATURATION 96.6 % (95.0-99.0); ABG PARTIAL PRESSURE CO2 41.5 mmHg (35.0-45.0); ABG PARTIAL PRESSURE O2 87.1 mmHg (75.0-100.0); ABG STANDARD HCO3 26.9 MMOL/L. (22.0-26.0); ABG TOTAL CO2 28.5 MMOL/L (23.0-31.0); ABG pH (ARTERIAL) 7.434 UNITS (7.350-7.450)
[2024-03-12] MEDS: OSELTAMIVIR PHOSPHATE 75 MG CAP (TAMIFLU) PO ONE (17:48)
[2024-03-12] MEDS: CEFEPIME HCL 2 GM in DEXTROSE 5% (D5W) ADV/MINI-BAG 50 ML IV SCH (17:48)
[2024-03-12] MEDS: VANCOMYCIN 1,750 MG/350 ML IV BAG *LOAD IV ONE (18:41)
[2024-03-12 19:41] VITALS: BP 137/85; TEMP 97.9; O2SAT 95
[2024-03-12] MEDS ORDERED: lisinopriL 5 MG TAB PO SCH (21:00)
[2024-03-12] MEDS ORDERED: FUROSEMIDE 40 MG TAB PO SCH (21:00)
[2024-03-12] MEDS: HEPARIN SOD (PORCINE) 5000UNITS/ML 1ML VIAL/SYRINGE SC SCH (21:22)
[2024-03-13 03:37] VITALS: BP 116/66; TEMP 97.2; O2SAT 93
[2024-03-13 04:00] VITALS: O2SAT 93
[2024-03-13 06:34] LABS: HEMATOCRIT 31.6 % (36.0-47.0); HEMOGLOBIN 10.5 g/dl (12.0-15.5); MEAN CORPUSCULAR HEMOGLOBIN 30.7 pg (27.0-33.0); MEAN CORPUSCULAR HGB CONC 33.2 g/dl (32.0-36.5); MEAN CORPUSCULAR VOLUME 92.4 fl (80.0-96.0); PLATELET COUNT, AUTOMATED 204 10^3/uL (150-450); RED BLOOD COUNT 3.42 10^6/uL (4.00-5.40)
[2024-03-13 07:05] LABS: ALBUMIN 2.5 G/DL (3.2-5.2); ALKALINE PHOSPHATASE 148 U/L (35-104); ALT/SGPT 213 U/L (7.0-40); AST/SGOT 91 U/L (<34); BILIRUBIN,DIRECT 0.3 MG/DL (<0.4); BILIRUBIN,TOTAL 0.6 MG/DL (0.3-1.2); BLOOD UREA NITROGEN 18 MG/DL (9-23); CALCIUM LEVEL 8.5 MG/DL (8.3-10.6); CARBON DIOXIDE LEVEL 25 MMOL/L (20-31); CHLORIDE LEVEL 111 MMOL/L (98-107); CREATININE FOR GFR 0.75 MG/DL (0.55-1.30); GLOMERULAR FILTRATION RATE > 60.0 (>45); GLUCOSE, FASTING 99 MG/DL (74-106); POTASSIUM SERUM 3.3 MMOL/L (3.5-5.1); SODIUM LEVEL 146 MMOL/L (136-145); TOTAL PROTEIN 5.3 G/DL (5.7-8.2)
[2024-03-13] MEDS: ATORVASTATIN 20 MG TAB PO SCH (08:27)
[2024-03-13] MEDS: VANCOMYCIN HCL 750 MG, VIAL MATE ADAPTER 1 EACH in NS 250 ML IV SCH ×2 (08:27→16:20)
[2024-03-13] MEDS: DULoxetine 30MG CAPSULE (CYMBALTA) PO SCH (08:27)
[2024-03-13] MEDS: METOPROLOL SUCC *XL* 25MG TAB (TopROL *XL*) PO SCH (08:28)
[2024-03-13] MEDS: POTASSIUM CHLORIDE 10MEQ SR TABLET PO ONE (09:45)
[2024-03-13 10:50] VITALS: O2SAT 96
[2024-03-13] MEDS: OSELTAMIVIR PHOSPHATE 30MG CAPSULE PO SCH (10:55)
[2024-03-13 12:00] VITALS: BP 138/89; TEMP 97.9; O2SAT 91
[2024-03-13 14:02] VITALS: O2SAT 94
[2024-03-13] MEDS: CEFEPIME HCL 2 GM in DEXTROSE 5% (D5W) ADV/MINI-BAG 50 ML IV SCH (14:27)
[2024-03-13] MEDS: NAPROXEN 250 MG TAB PO PRN (17:44)
[2024-03-13 19:46] VITALS: BP 102/66; TEMP 97.5; O2SAT 93
[2024-03-13] MEDS: OSELTAMIVIR PHOSPHATE 75 MG CAP (TAMIFLU) PO SCH (20:59)
[2024-03-14 01:27] VITALS: O2SAT 88
[2024-03-14 01:28] VITALS: O2SAT 97
[2024-03-14 04:00] VITALS: BP 151/88; TEMP 97.3; O2SAT 98
[2024-03-14 04:51] VITALS: O2SAT 96
[2024-03-14 07:33] LABS: BASO # 0.2 10^3/uL (0.0-0.2); BASO % 0.8 % (0.0-1.0); EOS # 0.2 10^3/uL (0.0-0.5); HEMATOCRIT 29.6 % (36.0-47.0); HEMOGLOBIN 9.7 g/dl (12.0-15.5); LYMPH # 0.8 10^3/uL (1.5-5.0); MEAN CORPUSCULAR HEMOGLOBIN 30.3 pg (27.0-33.0); MEAN CORPUSCULAR HGB CONC 32.8 g/dl (32.0-36.5); MEAN CORPUSCULAR VOLUME 92.5 fl (80.0-96.0); MONO # 1.7 10^3/uL (0.0-0.8); MONO % 8.1 % (2.0-8.0); NEUTROPHILS % 67.9 % (36.0-66.0); PLATELET COUNT, AUTOMATED 166 10^3/uL (150-450); WHITE BLOOD COUNT 20.7 10^3/uL (4.0-10.0)
[2024-03-14 07:57] LABS: BLOOD UREA NITROGEN 13 MG/DL (9-23); C REACTIVE PROTEIN QUANTITATIV 6.51 MG/DL (<1.0); CALCIUM LEVEL 8.5 MG/DL (8.3-10.6); CARBON DIOXIDE LEVEL 25 MMOL/L (20-31); CHLORIDE LEVEL 111 MMOL/L (98-107); CREATININE FOR GFR 0.67 MG/DL (0.55-1.30); GLOMERULAR FILTRATION RATE > 60.0 (>45); GLUCOSE, FASTING 89 MG/DL (74-106); POTASSIUM SERUM 3.3 MMOL/L (3.5-5.1); SODIUM LEVEL 145 MMOL/L (136-145)
[2024-03-14] MEDS: POTASSIUM CHLORIDE 10MEQ SR TABLET PO ONE (09:31)
[2024-03-14 12:00] VITALS: BP 119/87; TEMP 97.2; O2SAT 95
[2024-03-14 20:10] VITALS: BP 148/90; TEMP 96.8; O2SAT 93; O2SAT 94
[2024-03-15] VITALS: O2SAT 92
[2024-03-15 04:00] VITALS: BP 139/85; TEMP 97.5; O2SAT 96
[2024-03-15 08:05] LABS: BASO # 0.2 10^3/uL (0.0-0.2); BASO % 0.8 % (0.0-1.0); EOS # 0.2 10^3/uL (0.0-0.5); EOS % 0.9 % (0.0-3.0); HEMATOCRIT 29.3 % (36.0-47.0); HEMOGLOBIN 9.6 g/dl (12.0-15.5); LYMPH # 1.3 10^3/uL (1.5-5.0); LYMPH % 5.8 % (24.0-44.0); MEAN CORPUSCULAR HEMOGLOBIN 30.3 pg (27.0-33.0); MEAN CORPUSCULAR HGB CONC 32.8 g/dl (32.0-36.5); MEAN CORPUSCULAR VOLUME 92.4 fl (80.0-96.0); MONO # 2.5 10^3/uL (0.0-0.8); MONO % 11.4 % (2.0-8.0); NEUTROPHILS # 14.1 10^3/uL (1.5-8.5); NEUTROPHILS % 63.6 % (36.0-66.0); PLATELET COUNT, AUTOMATED 169 10^3/uL (150-450); RED BLOOD COUNT 3.17 10^6/uL (4.00-5.40); WHITE BLOOD COUNT 22.1 10^3/uL (4.0-10.0)
[2024-03-15 08:30] LABS: BLOOD UREA NITROGEN 10 MG/DL (9-23); CALCIUM LEVEL 8.5 MG/DL (8.3-10.6); CARBON DIOXIDE LEVEL 23 MMOL/L (20-31); CHLORIDE LEVEL 111 MMOL/L (98-107); GLOMERULAR FILTRATION RATE > 60.0 (>45); GLUCOSE, FASTING 96 MG/DL (74-106); MAGNESIUM LEVEL 1.4 MG/DL (1.8-2.4); POTASSIUM SERUM 3.3 MMOL/L (3.5-5.1); SODIUM LEVEL 143 MMOL/L (136-145)
[2024-03-15 08:32] LABS: ALBUMIN 2.5 G/DL (3.2-5.2); BILIRUBIN,DIRECT 0.3 MG/DL (<0.4); BILIRUBIN,TOTAL 0.6 MG/DL (0.3-1.2); TOTAL PROTEIN 5.1 G/DL (5.7-8.2)
[2024-03-15] MEDS: CEFDINIR 300 MG CAP (OMNICEF) PO SCH (08:44)
[2024-03-15] MEDS: POTASSIUM CHLORIDE 10MEQ SR TABLET PO ONE (09:45)
[2024-03-15] MEDS: MAG SULF 1GM/100ML (MAG RUN) 1 GM in IV 1 EA IV SCH (09:46)
[2024-03-15 12:21] VITALS: BP 150/80; TEMP 97.5; O2SAT 95
[2024-03-15 20:41] VITALS: BP 149/81; TEMP 97.7; O2SAT 97
[2024-03-16 04:00] VITALS: BP 149/82; TEMP 97.5; O2SAT 95
[2024-03-16 05:12] LABS: HEMATOCRIT 30.7 % (36.0-47.0); HEMOGLOBIN 10.1 g/dl (12.0-15.5); MEAN CORPUSCULAR HEMOGLOBIN 30.3 pg (27.0-33.0); MEAN CORPUSCULAR HGB CONC 32.9 g/dl (32.0-36.5); MEAN CORPUSCULAR VOLUME 92.2 fl (80.0-96.0); PLATELET COUNT, AUTOMATED 166 10^3/uL (150-450); RED BLOOD COUNT 3.33 10^6/uL (4.00-5.40); WHITE BLOOD COUNT 20.5 10^3/uL (4.0-10.0)
[2024-03-16 05:33] LABS: BLOOD UREA NITROGEN 7 MG/DL (9-23); CARBON DIOXIDE LEVEL 23 MMOL/L (20-31); CHLORIDE LEVEL 111 MMOL/L (98-107); CREATININE FOR GFR 0.54 MG/DL (0.55-1.30); GLOMERULAR FILTRATION RATE > 60.0 (>45); GLUCOSE, FASTING 81 MG/DL (74-106); POTASSIUM SERUM 3.7 MMOL/L (3.5-5.1); SODIUM LEVEL 143 MMOL/L (136-145)
[2024-03-16 05:42] LABS: LYMPHOCYTES 12 % (16-44); METAMYELOCYTES 1 % (0-0); MONOCYTES 3 % (0-5); MYELOCYTES 7 % (0-0); NEUTROPHILS 69 % (28-66); PROMYELOCYTES 1 % (0-0)
[2024-03-16 05:43] LABS: PLATELET ESTIMATE NORMAL (NORMAL)
[2024-03-16 05:44] LABS: POIKILOCYTOSIS 1+; POLYCHROMASIA 1+
[2024-03-16 08:09] VITALS: BP 140/84
[2024-03-16] MEDS ORDERED: CEFD300CAP PO (12:20)
[2024-03-16] MEDS ORDERED: OSEL75CA2 PO (12:20)
[2024-03-16] MEDS ORDERED: AMLO1TAB24 PO (12:22)
[2024-03-16 12:38] VITALS: BP 141/84; TEMP 97.7; O2SAT 96
== END 2024-03-16 13:55 | disposition home or self-care (01) | DRG 723 ==
LOC: EDBD 11:48 → M ED 11:48 → M ED INP 14:35 → M MSPAV 15:51 → OBSVTOIN 03-15 14:11
PROVIDERS: ADMIT Internal Medicine; ATTEND Internal Medicine
DX: J10.81 Influenza due to other identified influenza virus with encephalopathy (principal); G93.41 Metabolic encephalopathy; J18.9 Pneumonia, unspecified organism; N17.9 Acute kidney failure, unspecified; C78.7 Secondary malignant neoplasm of liver and intrahepatic bile duct; C79.51 Secondary malignant neoplasm of bone; E83.42 Hypomagnesemia; C50.919 Malignant neoplasm of unspecified site of unspecified female breast; E87.6 Hypokalemia; D72.829 Elevated white blood cell count, unspecified; Z92.21 Personal history of antineoplastic chemotherapy; Z92.3 Personal history of irradiation; G89.29 Other chronic pain; M54.50 Low back pain, unspecified; E78.5 Hyperlipidemia, unspecified; B96.1 Klebsiella pneumoniae [K. pneumoniae] as the cause of diseases classified elsewhere; F39 Unspecified mood [affective] disorder; Z79.899 Other long term (current) drug therapy

== ENCOUNTER → 2024-03-29 | Outpatient (CLI) | payer BC ==
[~2024-03-29] MED LIST changes: +AMLO1TAB24 PO; +CEFD300CAP PO; +OSEL75CA2 PO; -OSELTAMIVIR PHOSPHATE 30MG CAPSULE PO SCH
== END ==
LOC: M ONCR 09:07
PROVIDERS: ATTEND General Practice
DX: C50.311 Malignant neoplasm of lower-inner quadrant of right female breast (principal); C78.7 Secondary malignant neoplasm of liver and intrahepatic bile duct; C79.51 Secondary malignant neoplasm of bone; R29.6 Repeated falls; Z92.21 Personal history of antineoplastic chemotherapy; Z92.3 Personal history of irradiation; Z87.891 Personal history of nicotine dependence; Z79.899 Other long term (current) drug therapy

== ENCOUNTER 2024-04-11 14:15 | Outpatient (RCR) | payer BC ==
[~2024-04-11 14:15] MED LIST changes: +LIDO15SO8 PO
[2024-04-12] MEDS ORDERED: AMLO1TAB24 PO (09:05)
== END 2024-04-19 ==
LOC: M PT 14:15
PROVIDERS: ATTEND Nurse Practitioner Adult Health
DX: I89.0 Lymphedema, not elsewhere classified (principal); Z90.11 Acquired absence of right breast and nipple; Z85.3 Personal history of malignant neoplasm of breast

== ENCOUNTER → 2024-05-07 | Outpatient (CLI) | payer BC ==
[~2024-05-07] VITALS: Ht 162.6 cm; Wt 87.4 kg
[2024-05-07 13:03] VITALS: BP 112/69; O2SAT 95
== END ==
LOC: M PAL 12:40
PROVIDERS: ATTEND Family Medicine
DX: C50.911 Malignant neoplasm of unspecified site of right female breast (principal); C78.7 Secondary malignant neoplasm of liver and intrahepatic bile duct; C79.51 Secondary malignant neoplasm of bone; B35.1 Tinea unguium; G62.9 Polyneuropathy, unspecified; Z92.3 Personal history of irradiation; Z79.69 Long term (current) use of other immunomodulators and immunosuppressants; Z87.39 Personal history of other diseases of the musculoskeletal system and connective tissue; Z79.891 Long term (current) use of opiate analgesic; Z79.899 Other long term (current) drug therapy; Z66 Do not resuscitate

== ENCOUNTER → 2024-05-14 | Outpatient (CLI) | payer BC ==
[~2024-05-14] MED LIST changes: +ISOVUE-370 76% 100ML VIAL ONE
== END ==
LOC: M PLAIMG 08:32
PROVIDERS: ATTEND Internal Medicine Medical Oncology
DX: C50.911 Malignant neoplasm of unspecified site of right female breast (principal); N28.1 Cyst of kidney, acquired; N13.30 Unspecified hydronephrosis; N13.4 Hydroureter
CPT/HCPCS: 71260; 74177; Q9967

== ENCOUNTER → 2024-05-23 | Outpatient (CLI) | payer BC ==
[~2024-05-23] MED LIST changes: -ISOVUE-370 76% 100ML VIAL ONE; +LIDO1PAD TOP
== END ==
LOC: M ONCR 10:31
PROVIDERS: ATTEND General Practice
DX: C50.311 Malignant neoplasm of lower-inner quadrant of right female breast (principal); M25.50 Pain in unspecified joint; R91.1 Solitary pulmonary nodule; Z17.0 Estrogen receptor positive status [ER+]; Z17.21 Progesterone receptor positive status; Z17.32 Human epidermal growth factor receptor 2 negative status; Z92.29 Personal history of other drug therapy; Z98.890 Other specified postprocedural states; Z92.3 Personal history of irradiation; R29.6 Repeated falls; Z87.891 Personal history of nicotine dependence; Z79.891 Long term (current) use of opiate analgesic; Z79.899 Other long term (current) drug therapy; Z85.05 Personal history of malignant neoplasm of liver; Z85.830 Personal history of malignant neoplasm of bone

== ENCOUNTER → 2024-06-27 | Outpatient (REF) | payer BC ==
[2024-06-27 14:23] LABS: APPEARANCE, URINE CLOUDY (CLEAR); BACTERIA, URINE AUTO NEGATIVE (NEGATIVE); BILIRUBIN, URINE AUTO NEGATIVE (NEGATIVE); BLOOD, URINE BLOOD 1+ (NEGATIVE); COLOR, URINE YELLOW (YELLOW); GLUCOSE, URINE (UA) AUTO NEGATIVE (NEGATIVE); KETONE, URINE AUTO NEGATIVE (NEGATIVE); LEUKOCYTE ESTERASE, URINE AUTO 3+ (NEGATIVE); MUCUS, URINE SMALL (NEGATIVE); NITRITE, URINE AUTO NEGATIVE (NEGATIVE); PROTEIN, URINE AUTO 3+ mg/dL (NEGATIVE); RBC, URINE AUTO 10 /HPF (0-3); SPECIFIC GRAVITY URINE AUTO 1.012 (1.002-1.035); SQUAMOUS EPITHELIAL CELL UR AU 0 /HPF (0-6); UROBILINOGEN, URINE AUTO 0.2 mg/dL (0.0-2.0); WBC, URINE AUTO TNTC /HPF (0-3)
== END ==
LOC: M SMT 12:46
PROVIDERS: ATTEND Physician Assistant
DX: N32.89 Other specified disorders of bladder (principal)

== ENCOUNTER → 2024-07-09 | Outpatient (CLI) | payer BC ==
[~2024-07-09] VITALS: Ht 162.6 cm; Wt 89.0 kg
[~2024-07-09] MED LIST changes: +CEFP200T
[2024-07-09 14:18] VITALS: BP 126/67; O2SAT 96
== END ==
LOC: M PAL 14:02
PROVIDERS: ATTEND Physician Assistant
DX: Z51.5 Encounter for palliative care (principal); C50.911 Malignant neoplasm of unspecified site of right female breast; C78.7 Secondary malignant neoplasm of liver and intrahepatic bile duct; C79.51 Secondary malignant neoplasm of bone; G47.00 Insomnia, unspecified; G62.9 Polyneuropathy, unspecified; K59.00 Constipation, unspecified; R11.0 Nausea; R52 Pain, unspecified; Z66 Do not resuscitate; Z79.899 Other long term (current) drug therapy; Z92.3 Personal history of irradiation; Z92.21 Personal history of antineoplastic chemotherapy

== ENCOUNTER → 2024-07-09 | Outpatient (CLI) | payer BC | LOC: M ONCR 14:03 | PROVIDERS: ATTEND General Practice | DX: C50.311 Malignant neoplasm of lower-inner quadrant of right female breast (principal); C78.7 Secondary malignant neoplasm of liver and intrahepatic bile duct; C79.51 Secondary malignant neoplasm of bone; G62.9 Polyneuropathy, unspecified; R29.6 Repeated falls; Z74.09 Other reduced mobility; Z87.891 Personal history of nicotine dependence; Z79.891 Long term (current) use of opiate analgesic; Z79.899 Other long term (current) drug therapy; Z98.890 Other specified postprocedural states; Z92.21 Personal history of antineoplastic chemotherapy; Z92.3 Personal history of irradiation ==

== ENCOUNTER → 2024-07-30 | Outpatient (REF) | payer BC ==
[~2024-07-30] MED LIST changes: +AZIT-12 PO; +PREG-35 PO; -PREG100CA PO; -PREG25CA PO; +PREG25CA63 PO; -PREG50CA PO; +PREG50CA87 PO
[2024-07-30 17:41] LABS: APPEARANCE, URINE CLEAR (CLEAR); BACTERIA, URINE AUTO NEGATIVE (NEGATIVE); BILIRUBIN, URINE AUTO NEGATIVE (NEGATIVE); BLOOD, URINE BLOOD 1+ (NEGATIVE); COLOR, URINE YELLOW (YELLOW); GLUCOSE, URINE (UA) AUTO NEGATIVE (NEGATIVE); KETONE, URINE AUTO NEGATIVE (NEGATIVE); LEUKOCYTE ESTERASE, URINE AUTO NEGATIVE (NEGATIVE); MUCUS, URINE SMALL (NEGATIVE); NITRITE, URINE AUTO NEGATIVE (NEGATIVE); PROTEIN, URINE AUTO 2+ mg/dL (NEGATIVE); RBC, URINE AUTO 36 /HPF (0-3); SPECIFIC GRAVITY URINE AUTO 1.013 (1.002-1.035); SQUAMOUS EPITHELIAL CELL UR AU 0 /HPF (0-6); UROBILINOGEN, URINE AUTO 0.2 mg/dL (0.0-2.0); WBC, URINE AUTO 6 /HPF (0-3)
== END ==
LOC: M SMT 17:03
PROVIDERS: ATTEND Urology
DX: N32.89 Other specified disorders of bladder (principal)

== ENCOUNTER → 2024-08-05 | Outpatient (CLI) | payer BC ==
[~2024-08-05] MED LIST changes: +ISOVUE-370 76% 100ML VIAL As Ordered ONE
== END ==
LOC: M RAD 09:34
PROVIDERS: ATTEND Internal Medicine Medical Oncology
DX: C50.919 Malignant neoplasm of unspecified site of unspecified female breast (principal); C79.51 Secondary malignant neoplasm of bone; R91.8 Other nonspecific abnormal finding of lung field
CPT/HCPCS: 71260; 74177; Q9967

== ENCOUNTER → 2024-10-30 | Outpatient (CLI) | payer BC ==
[~2024-10-30] MED LIST changes: +ISOVUE-370 76% 100 ML VIAL As Ordered ONE; -ISOVUE-370 76% 100ML VIAL As Ordered ONE
== END ==
LOC: M RAD 15:24
PROVIDERS: ATTEND Internal Medicine Medical Oncology
DX: C50.911 Malignant neoplasm of unspecified site of right female breast (principal); C79.51 Secondary malignant neoplasm of bone; R91.8 Other nonspecific abnormal finding of lung field
CPT/HCPCS: 71260; 74177; Q9967

== ENCOUNTER → 2024-11-04 | Outpatient (REF) | payer BC ==
[~2024-11-04] MED LIST changes: -ISOVUE-370 76% 100 ML VIAL As Ordered ONE
[2024-11-06 13:52] LABS: HPV APTIMA Not Detected (Not Detected)
== END ==
LOC: M SFHCWAGY 15:36
PROVIDERS: ATTEND Obstetrics & Gynecology
DX: Z12.4 Encounter for screening for malignant neoplasm of cervix (principal); R87.618 Other abnormal cytological findings on specimens from cervix uteri
CPT/HCPCS: 87624; G0123

== ENCOUNTER → 2024-11-12 | Outpatient (CLI) | payer BC ==
[~2024-11-12] VITALS: Ht 160 cm; Wt 89.7 kg
[~2024-11-12] MED LIST changes: -IBUP1TAB6 PO; +OXYC-1 PO; +SFHIBU600 PO
[2024-11-12 13:41] VITALS: BP 154/77; O2SAT 94
== END ==
LOC: M PAL 13:28
PROVIDERS: ATTEND Physician Assistant
DX: Z51.5 Encounter for palliative care (principal); Z66 Do not resuscitate; C50.919 Malignant neoplasm of unspecified site of unspecified female breast; C79.51 Secondary malignant neoplasm of bone; C78.7 Secondary malignant neoplasm of liver and intrahepatic bile duct; Z79.891 Long term (current) use of opiate analgesic; Z79.899 Other long term (current) drug therapy; Z79.02 Long term (current) use of antithrombotics/antiplatelets

== ENCOUNTER → 2024-11-26 | Outpatient (CLI) | payer BC | LOC: M ONCR 08:24 | PROVIDERS: ATTEND General Practice | DX: C50.311 Malignant neoplasm of lower-inner quadrant of right female breast (principal); R91.8 Other nonspecific abnormal finding of lung field; Z85.05 Personal history of malignant neoplasm of liver; Z85.830 Personal history of malignant neoplasm of bone; Z92.21 Personal history of antineoplastic chemotherapy; Z92.3 Personal history of irradiation; Z98.890 Other specified postprocedural states; Z79.899 Other long term (current) drug therapy; Z87.891 Personal history of nicotine dependence ==

== ENCOUNTER → 2024-12-17 | Outpatient (CLI) | payer MEDICARE, BC ==
[~2024-12-17] VITALS: Ht 162.6 cm; Wt 89.5 kg
[~2024-12-17] MED LIST changes: +CAPE500T23 PO; +OXYB10TA23 PO; +POTA1TAB22 PO; -XELO1TAB PO; +med rec comment
[2024-12-17 08:41] VITALS: BP 129/74; O2SAT 95
== END ==
LOC: M PAL 08:03
PROVIDERS: ATTEND Physician Assistant
DX: Z51.5 Encounter for palliative care (principal); Z66 Do not resuscitate; C50.919 Malignant neoplasm of unspecified site of unspecified female breast; C78.7 Secondary malignant neoplasm of liver and intrahepatic bile duct; C79.51 Secondary malignant neoplasm of bone; Z92.21 Personal history of antineoplastic chemotherapy; Z92.3 Personal history of irradiation; Z79.891 Long term (current) use of opiate analgesic; Z79.899 Other long term (current) drug therapy; Z79.02 Long term (current) use of antithrombotics/antiplatelets

== ENCOUNTER → 2024-12-30 | Outpatient (CLI) | payer MEDICARE, BC | LOC: M RAD 14:13 | PROVIDERS: ATTEND Internal Medicine Medical Oncology | DX: R74.8 Abnormal levels of other serum enzymes (principal); C50.919 Malignant neoplasm of unspecified site of unspecified female breast; R93.2 Abnormal findings on diagnostic imaging of liver and biliary tract ==

== ENCOUNTER 2025-01-02 16:07 | Inpatient (IN) | payer MEDICARE, BC ==
[~2025-01-02] VITALS: Ht 160 cm; Wt 92.2 kg
[~2025-01-02 16:07] MED LIST changes: -OXYB10TA23 PO; -med rec comment
[2025-01-02 16:38] LABS: BASO # 0.0 10^3/uL (0.0-0.2); BASO % 0.1 % (0.0-1.0); EOS # 0.0 10^3/uL (0.0-0.5); EOS % 0.2 % (0.0-3.0); LYMPH # 0.8 10^3/uL (1.5-5.0); LYMPH % 5.4 % (24.0-44.0); MONO # 0.7 10^3/uL (0.0-0.8); MONO % 4.7 % (2.0-8.0); NEUTROPHILS # 12.5 10^3/uL (1.5-8.5); NEUTROPHILS % 88.1 % (36.0-66.0); PLATELET COUNT, AUTOMATED 484 10^3/uL (150-450)
[2025-01-02 17:09] LABS: ALT/SGPT 125.0 U/L (7.0-40); AST/SGOT 69.0 U/L (<34)
[2025-01-02] MEDS ORDERED: ISOVUE-370 76% 100 ML VIAL As Ordered ONE (17:59)
[2025-01-02] MEDS: MORPHINE 2 MG/ML 1 ML VIAL IV ONE ×2 (18:54→21:55)
[2025-01-02] MEDS: ONDANSETRON 4MG 2ML VIAL IV ONE (18:54)
[2025-01-02 21:21] LABS: KETONE, URINE AUTO RFX NEGATIVE (NEGATIVE); NITRITE, URINE AUTO RFX NEGATIVE (NEGATIVE); RBC, URINE AUTO RFX 6 /HPF (0-3); SQUAM EPITHELIAL CELL UR AURFX 5 /HPF (0-6)
[2025-01-02 21:22] LABS: LEUKOCYTE ESTERASE UR AUTO RFX 2+ (NEGATIVE); WBC, URINE AUTO RFX TNTC /HPF (0-3)
[2025-01-02] MEDS: cefTRIAXone SOD 1 GM in DEXTROSE 5% (D5W) ADV/MINI-BAG 50 ML IV ONE (21:55)
[2025-01-02] MEDS ORDERED: MAALOX 30 ML SUSP *UDC PO PRN (22:40)
[2025-01-02] MEDS ORDERED: MOM 30 ML SUSPENSION UDC PO PRN (22:40)
[2025-01-02] MEDS ORDERED: ACETAMINOPHEN 325 MG TAB PO PRN (22:40)
[2025-01-02] MEDS ORDERED: HOME MED LIST COMPLETE! XX SCH (23:40)
[2025-01-02] MEDS ORDERED: OXYB10TA23 PO (23:40)
[2025-01-02] MEDS ORDERED: med rec comment (23:40)
[2025-01-03] MEDS: PANTOPRAZOLE 40MG VIAL IV ONE (03:48)
[2025-01-03] MEDS: ENOXAPARIN 40 MG/0.4 ML SYRINGE (J1650 PER 10MG) SC SCH (11:25)
[2025-01-03 13:00] LABS: PLATELET COUNT, AUTOMATED 417 10^3/uL (150-450)
[2025-01-03 13:28] LABS: ALT/SGPT 88.0 U/L (7.0-40); AST/SGOT 25.0 U/L (<34); CALCIUM LEVEL 8.8 MG/DL (8.3-10.6); CARBON DIOXIDE LEVEL 29.0 MMOL/L (20-31); CHLORIDE LEVEL 104.0 MMOL/L (98-107); CREATININE FOR GFR 0.8 MG/DL (0.55-1.30); GLOMERULAR FILTRATION RATE 83.8 (>45); POTASSIUM SERUM 3.5 MMOL/L (3.5-5.1); SODIUM LEVEL 145.0 MMOL/L (136-145)
[2025-01-03] MEDS ORDERED: LORazepam 1 MG TAB PO PRN (13:30)
[2025-01-03] MEDS ORDERED: ONDANSETRON 4MG 2ML VIAL IV PRN (13:30)
[2025-01-03 14:38] LABS: INR 1.11
[2025-01-03] MEDS: PIPERACILLIN/TAZOBACTAM SOD 3.375 GM in DEXTROSE 5% (D5W) ADV/MINI-BAG 50 ML IV SCH (15:12)
[2025-01-03 20:07] VITALS: BP 111/69; TEMP 97.3; O2SAT 95
[2025-01-03] MEDS ORDERED: cefTRIAXone SOD 1 GM in DEXTROSE 5% (D5W) ADV/MINI-BAG 50 ML IV ONE (22:00)
[2025-01-04 03:44] VITALS: BP 110/71; TEMP 97.5
[2025-01-04 06:57] LABS: PLATELET COUNT, AUTOMATED 386 10^3/uL (150-450)
[2025-01-04 07:09] LABS: INR 1.05
[2025-01-04 07:18] LABS: ALT/SGPT 74.0 U/L (7.0-40); AST/SGOT 40.0 U/L (<34); CALCIUM LEVEL 8.3 MG/DL (8.3-10.6); CARBON DIOXIDE LEVEL 30.0 MMOL/L (20-31); CHLORIDE LEVEL 104.0 MMOL/L (98-107); CREATININE FOR GFR 0.87 MG/DL (0.55-1.30); GLOMERULAR FILTRATION RATE 75.8 (>45); POTASSIUM SERUM 3.1 MMOL/L (3.5-5.1); SODIUM LEVEL 146.0 MMOL/L (136-145)
[2025-01-04] MEDS ORDERED: MEROPENEM 2 GM in SODIUM CHLORIDE 0.9% INJ 100 ML IV SCH (08:25)
[2025-01-04] MEDS: ATORVASTATIN 20 MG TAB PO SCH (09:06)
[2025-01-04] MEDS: oxyBUTYnin *XL* 5 MG TAB PO SCH (09:06)
[2025-01-04] MEDS: METOPROLOL SUCC. 25 MG *XL* TAB PO SCH (09:19)
[2025-01-04] MEDS: POTASSIUM CHLORIDE 10% LIQ 20MEQ/15ML UDC PO ONE (10:03)
[2025-01-04] MEDS: CEFEPIME HCL 2 GM in DEXTROSE 5% (D5W) ADV/MINI-BAG 50 ML IV SCH (11:10)
[2025-01-04 11:59] VITALS: BP 90/61; TEMP 96.8; O2SAT 95
[2025-01-04 12:05] VITALS: BP 115/70
[2025-01-04] MEDS: PNEUMOC 21-VAL CONJ-DIP CRM/PF 0.5 ML SYRINGE IM.IMMUN ONE (17:34)
[2025-01-04] MEDS: FLUZONE VACCINE TRI PF(25-26) 0.5ML SYRINGE IM.IMMUN ONE (17:36)
[2025-01-04 20:09] VITALS: BP 93/62; TEMP 96.8; O2SAT 95
[2025-01-05 03:16] VITALS: BP 92/62; TEMP 97.5; O2SAT 95
[2025-01-05 06:30] LABS: PLATELET COUNT, AUTOMATED 327 10^3/uL (150-450)
[2025-01-05 06:44] LABS: INR 0.96
[2025-01-05 06:55] LABS: ALT/SGPT 81.0 U/L (7.0-40); AST/SGOT 50.0 U/L (<34); CALCIUM LEVEL 8.0 MG/DL (8.3-10.6); CARBON DIOXIDE LEVEL 28.0 MMOL/L (20-31); CHLORIDE LEVEL 105.0 MMOL/L (98-107); CREATININE FOR GFR 0.76 MG/DL (0.55-1.30); GLOMERULAR FILTRATION RATE 89.1 (>45); POTASSIUM SERUM 3.2 MMOL/L (3.5-5.1); SODIUM LEVEL 144.0 MMOL/L (136-145)
[2025-01-05 10:13] VITALS: BP 92/62
[2025-01-05] MEDS: POTASSIUM CHLORIDE 10MEQ SR TABLET PO ONE (10:14)
[2025-01-05 12:00] VITALS: BP 97/64; TEMP 97.2; O2SAT 97
[2025-01-05] MEDS ORDERED: BACT800T5 PO (13:04)
== END 2025-01-05 14:46 | disposition home or self-care (01) | DRG 872 ==
LOC: EDBD 16:07 → M ED 16:07 → M ED INP 01-03 15:11 → M MSPAV 01-03 16:04
PROVIDERS: ADMIT Student in an Organized Health Care Education/Training Program; ATTEND Student in an Organized Health Care Education/Training Program
DX: A41.9 Sepsis, unspecified organism (principal); N39.0 Urinary tract infection, site not specified; N13.30 Unspecified hydronephrosis; C79.51 Secondary malignant neoplasm of bone; C78.7 Secondary malignant neoplasm of liver and intrahepatic bile duct; E87.6 Hypokalemia; K31.89 Other diseases of stomach and duodenum; I10 Essential (primary) hypertension; R91.8 Other nonspecific abnormal finding of lung field; Z92.21 Personal history of antineoplastic chemotherapy; C50.911 Malignant neoplasm of unspecified site of right female breast; Z87.891 Personal history of nicotine dependence; G62.9 Polyneuropathy, unspecified; Z79.899 Other long term (current) drug therapy

== ENCOUNTER → 2025-01-08 | Outpatient (CLI) | payer MEDICARE, BC ==
[~2025-01-08] VITALS: Ht 162.6 cm; Wt 86.0 kg
[~2025-01-08] MED LIST changes: +AUGM500T34 PO; +DIPH1TAB81 PO; +NITR100C2 PO; +OXYB10TA23 PO; +med rec comment
[2025-01-08 09:42] VITALS: BP 90/60; O2SAT 94
== END ==
LOC: M PAL 09:41
PROVIDERS: ATTEND Physician Assistant
DX: Z51.5 Encounter for palliative care (principal); Z66 Do not resuscitate; C50.911 Malignant neoplasm of unspecified site of right female breast; C79.51 Secondary malignant neoplasm of bone; C78.7 Secondary malignant neoplasm of liver and intrahepatic bile duct; Z92.21 Personal history of antineoplastic chemotherapy; Z92.3 Personal history of irradiation; G95.29 Other cord compression; Z79.891 Long term (current) use of opiate analgesic; Z79.899 Other long term (current) drug therapy; Z79.02 Long term (current) use of antithrombotics/antiplatelets

== ENCOUNTER → 2025-01-27 | Outpatient (CLI) | payer BC, MEDICARE ==
[~2025-01-27] MED LIST changes: -AUGM500T34 PO; -DIPH1TAB81 PO; +ISOVUE-370 76% 100 ML VIAL As Ordered ONE; -NITR100C2 PO
== END ==
LOC: M RAD 08:37
PROVIDERS: ATTEND Internal Medicine Medical Oncology
DX: C50.911 Malignant neoplasm of unspecified site of right female breast (principal)
CPT/HCPCS: 71260; 74177; Q9967

== ENCOUNTER → 2025-02-03 | Outpatient (CLI) | payer MEDICARE ==
[~2025-02-03] MED LIST changes: -ISOVUE-370 76% 100 ML VIAL As Ordered ONE
== END ==
LOC: M PLARAD 13:56
PROVIDERS: ATTEND Internal Medicine Medical Oncology
DX: C50.811 Malignant neoplasm of overlapping sites of right female breast (principal); R91.8 Other nonspecific abnormal finding of lung field; K76.89 Other specified diseases of liver; M89.8X8 Other specified disorders of bone, other site
CPT/HCPCS: 78815; A9552

== ENCOUNTER → 2025-02-26 | Outpatient (CLI) | payer BC ==
[~2025-02-26] MED LIST changes: +NITR100C2 PO
== END ==
LOC: M PAL 10:36
PROVIDERS: ATTEND Physician Assistant
DX: Z51.5 Encounter for palliative care (principal); Z66 Do not resuscitate; C50.019 Malignant neoplasm of nipple and areola, unspecified female breast; C79.51 Secondary malignant neoplasm of bone; C78.7 Secondary malignant neoplasm of liver and intrahepatic bile duct; Z86.69 Personal history of other diseases of the nervous system and sense organs; Z79.891 Long term (current) use of opiate analgesic; Z79.899 Other long term (current) drug therapy; Z79.02 Long term (current) use of antithrombotics/antiplatelets